=== PATIENT | female | born 1980 | race Caucasian/White ===

== ENCOUNTER 2022-07-19 18:33 | Emergency (ER) | payer BC, SELFPAY ==
[2022-07-19] VITALS (8 sets, daily range): BP systolic 150–203; BP diastolic 82–107; PULSE 79–84; RESP 17–43; TEMP 36.6; O2SAT 97–100; BMI 45.6
--- NOTE | 2022-07-19 18:46 | DI.RAD.S_ITS ---
PROCEDURE: XR CHEST 1V INDICATIONS: chest pain TECHNIQUE: One view of the chest was acquired. COMPARISON: None. FINDINGS: Surgical changes and devices: None. Lungs and pleura: Lungs are clear. No pleural effusions or pneumothorax. Mediastinum: Mediastinal contours appear normal. Heart size is enlarged. Bones and chest wall: No suspicious bony lesions. Overlying soft tissues appear unremarkable. IMPRESSION: Cardiomegaly without vascular congestion Approved by: Reji Kan M.D. on 07/19/2022 at 18:49
[2022-07-19 19:09] LABS: Add Manual Diff / Slide Review NO; Basophils Absolute Auto 100 /uL (0-100); Basophils Percent Auto 0.5 % (0-2); Eosinophils Absolute Auto 400 /uL (0-450); Eosinophils Percent Auto 3.3 % (2-4); Hematocrit 38.1 % (36-46); Hemoglobin 12.9 g/dL (12.0-16.0); Lymphocytes Absolute Auto 2800 /uL (1100-4500); Lymphocytes Percent Auto 25.3 % (25-40); Mean Corpuscular HGB Conc 33.8 % (30-36); Mean Corpuscular Hemoglobin 29.6 PG (26-34); Mean Corpuscular Volume 87.5 fL (80-100); Monocytes Absolute Auto 1000 /uL (0-900); Monocytes Percent Auto 9.4 % (3-14); Neutrophils Absolute Auto 6800 /uL (1500-7000); Neutrophils Percent Auto 61.5 % (50-75); Platelet Count 351 X10^3/uL (150-400); Red Blood Cell Count 4.35 X10^6/uL (4.0-5.2)
[2022-07-19 19:53] LABS: Alanine Aminotransferase 47 IU/L (<35); Albumin 4.1 g/dL (3.5-5.0); Albumin Globulin Ratio 1.1 (1.0-2.8); Alkaline Phosphatase 82 U/L (38-126); Aspartate Aminotransferase 36 IU/L (14-36); BUN Creatinine Ratio 10.9 (6-22); Bilirubin Total 0.8 mg/dL (0.2-1.3); Blood Urea Nitrogen 6 mg/dL (7-17); Calcium 8.8 mg/dL (8.4-10.2); Carbon Dioxide 27 mmol/L (22-32); Chloride 101 mmol/L (98-107); Creatine Kinase 63 U/L (30-135); Estimated Glomerular Filt Rate > 60 mL/min (>60); Globulin 3.6 g/dL (1.7-4.1); Glucose 171 mg/dL (70-100); HEMOLYSIS < 15 (0-50); Lipase 77 U/L (23-300); Magnesium 2.1 mg/dL (1.6-2.3); Potassium 3.8 mmol/L (3.4-5.1); Sodium 137 mmol/L (137-145); Total Protein 7.7 g/dL (6.3-8.2)
--- NOTE | 2022-07-19 19:54 | DI.CT.S_ITS ---
PROCEDURE: CT ANGIO CHEST PE PROTOCOL INDICATIONS: Dyspnea/history of DVT/right-sided chest pain TECHNIQUE: After the administration of intravenous contrast, 2 mm thick sections acquired from the pulmonary apices to the posterior costophrenic angles. 3-dimensional maximum intensity projection (MIP) coronal and sagittal reformats were then acquired through the thorax. For radiation dose reduction, the following was used: automated exposure control, adjustment of mA and/or kV according to patient size. COMPARISON: None. FINDINGS: Image quality: Excellent. Pulmonary arteries: Pulmonary arteries are normal in size, and demonstrate no intraluminal filling defects to suggest central pulmonary embolism. Lungs and pleura: Lungs are clear. No pleural effusions or pneumothorax. Central and peripheral airways are patent. Mediastinum: Heart size is normal, without pericardial effusion. No mediastinal or hilar adenopathy. Thoracic aorta is normal in caliber and enhancement. Esophagus is normal in caliber, without hiatal hernia. Bones and chest wall: No suspicious bony lesions. Ribs and thoracic spine appear intact throughout. Thyroid gland is within normal limits. Borderline enlarged left supraclavicular and axillary lymph nodes are seen measures up to 1 cm in short axis diameter in left supraclavicular region and 1.4 cm in short axis diameter in left axilla series 4, image 29. Bilateral breast implants are seen in place and are grossly intact. Abdomen: Visualized upper abdominal solid organs appear normal in the early arterial phase of enhancement. IMPRESSION: 1. No evidence of pulmonary emboli. No thoracic aortic aneurysm or gross dissection. 2. No mediastinal or hilar lymphadenopathy by size criteria. Nonspecific mildly enlarged left supraclavicular and axillary lymph nodes which could represent reactive inflammatory nodes. 3. Bilateral lungs are clear. Airway is patent. Dictated by: Cyrus Gray M.D. on 07/19/2022 at 20:41 Approved by: Cyrus Gray M.D. on 07/19/2022 at 20:45
--- NOTE | 2022-07-19 19:55 | ED_ITS ---
HPI - Chest Pain General Chief Complaint: Chest Pain Stated Complaint: Cough, Chest/Throat pains Time Seen by Provider: 07/19/22 19:44 History of Present Illness HPI narrative: Patient here with mother. Complains of persistent coughing with right side chest discomfort. Patient returned from [place] June 08 of this year. Tested positive for COVID but had short respiratory symptoms for 1 or 2 days in improved. However rebounded with cough cold congestion a couple weeks later. Still has persistent cough. No exertional chest pain. At times feel short of breath but not persistent. Patient seen here 5 days ago for same complaint. Patient has been on steroid packs by primary care/urgent care in the past 4 weeks as well. No improvement. No history of lung disease asthma COPD. Does not smoke. There is family history of heart disease. Patient does take blood pressure medication. She was anxious she states in triage. However blood pressure much improved now. Patient does have dry cough during interview. Did have history of blood clot in the leg 11 years ago secondary to surgery. Did have blood work done and did not show any genetic disposition for blood clots. Complains of reproducible right upper chest discomfort sharp pain with deep breath and movement that radiates to the right neck. Related Data Home Medications Medication Instructions Recorded Confirmed escitalopram oxalate 10 mg tablet 10 mg PO DAILY 06/28/22 06/28/22 (Lexapro) lisinopril 10 mg tablet 10 mg PO DAILY 06/28/22 06/28/22 Previous Rx's Medication Instructions Recorded benzonatate 100 mg capsule 100 mg PO BID PRN cough #20 caps 06/28/22 Allergies Allergy/AdvReac Type Severity Reaction Status Date / Time No Known Drug Allergies Allergy Unverified 07/19/22 18:46 Review of Systems Review of Systems Narrative: GENERAL: Denies chills, fatigue, malaise, fever, sweats. HEENT: Denies sinus pain, ear pain, sore throat RESPIRATORY: Denies dyspnea, positive cough CARDIOVASCULAR: Positive chest pain, palpitations GASTROINTESTINAL: Denies nausea, vomiting, abdominal pain : Denies dysuria, frequency, hematuria MUSCULOSKELETAL: denies muscle or bony pain SKIN: Denies rash, skin lesions NEUROLOGIC: Denies weakness, numbness ROS Unobtainable: All systems reviewed & are unremarkable except as noted in HPI and below Patient History Social History Smoking Status: Never smoker Smoking Status: Never smoker alcohol intake frequency: a few times a week Substance Use Type: does not use Exam Narrative Exam Narrative: GENERAL: in no distress, not toxic not dyspneic HEAD: Normocephalic. EYES: Pupils equal round No scleral icterus. ENT: Mucous membranes moist. NECK: Trachea midline. CARDIOVASCULAR: Regular rate and rhythm without murmurs, reproducible right upper chest tenderness on palpation as well as coughing/deep breath RESPIRATORY: Clear to auscultation. Breath sounds equal bilaterally. No wheezes, rales, or rhonchi. GASTROINTESTINAL: Abdomen soft, non-tender EXTREMITIES: No gross deformities. No calf tenderness. BACK: No flank tenderness. NEURO: AOx4. SKIN: Warm and dry PSYCH: Not anxious, is cooperative Initial Vital Signs Initial Vital Signs: Vital Signs Temperature 97.9 F 07/19/22 18:39 Pulse Rate 82 07/19/22 18:39 Respiratory Rate 18 07/19/22 18:39 Blood Pressure 203/98 H 07/19/22 18:39 Pulse Oximetry 100 07/19/22 18:39 Oxygen Delivery Method 07/19/22 18:39 Course Course Course Narrative: No new issues during course of stay Orders Ordered: ED Orders 07/19/22 18:46 XR chest 1V Stat EKG-12 Lead Stat 07/19/22 19:00 Complete Blood Count AUTO DIFF Stat Comprehensive Metabolic Panel Stat Lipase Stat Magnesium Stat Test Serum,Qual Stat Troponin & CK Cardiac Panel Stat 07/19/22 19:54 CT angio chest PE protocol Stat 07/19/22 21:00 Respiratory Panel (Film Array) Stat Discontinued Medications Sodium Chloride (Normal Saline 0.9%) 500 mls @ 1,000 mls/hr IV BOLUS ONE Stop: 07/19/22 20:23 Last Infusion: 07/19/22 21:45 Dose: 0 mls/hr Documented By: Admin: 07/19/22 20:54 Dose: 1,000 mls/hr Documented By: EMMA Reevaluation(s) Reevaluation #1: Reviewed results with mother and patient. At this time laboratory studies and imaging are reassuring. Symptoms likely extension COVID. No antibiotics indicated at this time. Other than cough medication, and follow up with primary care for blood pressure re-evaluation, the symptoms may take a couple of months to resolve. Return precautions reviewed with them. They desire discharge home. Viral swab is pending however may take up to an hour, they do not want wait for results, they state they will call back Time: 21:08 Vital Signs Vital signs: Vital Signs - 8 hr 07/19/22 18:39 07/19/22 19:00 07/19/22 19:02 Temperature 97.9 F 97.8 F Pulse Rate 82 84 82 Respiratory Rate 18 20 17 Blood Pressure 203/98 H Pulse Oximetry 100 98 Oxygen Delivery Method Room Air 07/19/22 19:02 07/19/22 19:30 07/19/22 19:30 Temperature Pulse Rate 81 Respiratory Rate 22 Blood Pressure 179/107 H 161/92 H Pulse Oximetry 97 Oxygen Delivery Method 07/19/22 20:00 07/19/22 20:00 07/19/22 20:30 Temperature Pulse Rate 83 79 Respiratory Rate 24 43 H Blood Pressure 155/89 H Pulse Oximetry 98 98 Oxygen Delivery Method 07/19/22 21:00 07/19/22 21:45 Temperature Pulse Rate 81 82 Respiratory Rate 33 H 21 Blood Pressure 150/82 H Pulse Oximetry 98 98 Oxygen Delivery Method Room Air MDM - Chest Pain Differential Diagnosis Differential diagnosis: Likely stable angina, unstable angina pectoris, atypical chest pain, chest pain and other (Pneumonia/bronchitis/costochondritis/PE) Lab Data Result diagrams: 07/19/22 19:00 07/19/22 19:00 Labs: Lab Results 07/19/22 07/19/22 07/19/22 Range/Units 19:00 19:00 19:00 WBC 11.0 (4.5-11.0) X10^3/uL RBC 4.35 (4.0-5.2) X10^6/uL Hgb 12.9 (12.0-16.0) g/dL Hct 38.1 (36-46) % MCV 87.5 (80-100) fL MCH 29.6 (26-34) PG MCHC 33.8 (30-36) % RDW 13.0 (11.6-14.8) % Plt Count 351 (150-400) X10^3/uL Neut % (Auto) 61.5 (50-75) % Lymph % (Auto) 25.3 (25-40) % [place] % (Auto) 9.4 (3-14) % Eos % (Auto) 3.3 (2-4) % Baso % (Auto) 0.5 (0-2) % Neut # (Auto) 6800 (9682-5842) /uL Lymph # (Auto) 2800 (9698-3186) /uL [place] # (Auto) 1000 H (0-900) /uL Eos # (Auto) 400 (0-450) /uL Baso # (Auto) 100 (0-100) /uL Sodium 137 (137-145) mmol/L Potassium 3.8 (3.4-5.1) mmol/L Chloride 101 (98-107) mmol/L Carbon Dioxide 27 (22-32) mmol/L BUN 6 L (7-17) mg/dL Creatinine 0.55 (0.52-1.04) mg/dL Estimated GFR > 60 (>60) mL/min BUN/Creatinine Ratio 10.9 (6-22) Glucose 171 H (70-100) mg/dL Calcium 8.8 (8.4-10.2) mg/dL Magnesium 2.1 (1.6-2.3) mg/dL Total Bilirubin 0.8 (0.2-1.3) mg/dL AST 36 (14-36) IU/L ALT 47 H (<35) IU/L Alkaline Phosphatase 82 (38-126) U/L Total Creatine Kinase 63 (30-135) U/L CK-MB (CK-2) TNP CK-MB (CK-2) Rel Index TNP Troponin I < 0.012 (0.01-0.034) ng/mL Total Protein 7.7 (6.3-8.2) g/dL Albumin 4.1 (3.5-5.0) g/dL Globulin 3.6 (1.7-4.1) g/dL Albumin/Globulin Ratio 1.1 (1.0-2.8) Lipase 77 (23-300) U/L Serum , Qual Negative (Negative) Chlamy pneumoniae PCR (Not Detect) Adenovirus (PCR) (Not Detect) B. pertussis DNA (PCR) (Not Detecte) B.parapertussis DNA PCR (Not Detecte) Coronavirus OC43 (PCR) (Not Detect) Coronavirus HKU1 (PCR) (Not Detect) Coronavirus 229E (PCR) (Not Detect) SARS-CoV-2 (PCR) (Not Detecte) Coronavirus NL63 (PCR) (Not Detect) Human Metapneumovir PCR (Not Detect) Influenza Type A (PCR) (Not Detect) Influenza Type B (PCR) (Not Detect) M. pneumoniae (PCR) (Not Detect) Parainfluenza 1 (PCR) (Not Detect) Parainfluenza 2 (PCR) (Not Detect) Parainfluenza 3 (PCR) (Not Detect) Parainfluenza 4 (PCR) (Not Detect) RSV (PCR) (Not Detect) Entero/Rhino (PCR) (Not Detect) 07/19/22 Range/Units 21:00 WBC (4.5-11.0) X10^3/uL RBC (4.0-5.2) X10^6/uL Hgb (12.0-16.0) g/dL Hct (36-46) % MCV (80-100) fL MCH (26-34) PG MCHC (30-36) % RDW (11.6-14.8) % Plt Count (150-400) X10^3/uL Neut % (Auto) (50-75) % Lymph % (Auto) (25-40) % [place] % (Auto) (3-14) % Eos % (Auto) (2-4) % Baso % (Auto) (0-2) % Neut # (Auto) (1603-6222) /uL Lymph # (Auto) (7301-6656) /uL [place] # (Auto) (0-900) /uL Eos # (Auto) (0-450) /uL Baso # (Auto) (0-100) /uL Sodium (137-145) mmol/L Potassium (3.4-5.1) mmol/L Chloride (98-107) mmol/L Carbon Dioxide (22-32) mmol/L BUN (7-17) mg/dL Creatinine (0.52-1.04) mg/dL Estimated GFR (>60) mL/min BUN/Creatinine Ratio (6-22) Glucose (70-100) mg/dL Calcium (8.4-10.2) mg/dL Magnesium (1.6-2.3) mg/dL Total Bilirubin (0.2-1.3) mg/dL AST (14-36) IU/L ALT (<35) IU/L Alkaline Phosphatase (38-126) U/L Total Creatine Kinase (30-135) U/L CK-MB (CK-2) CK-MB (CK-2) Rel Index Troponin I (0.01-0.034) ng/mL Total Protein (6.3-8.2) g/dL Albumin (3.5-5.0) g/dL Globulin (1.7-4.1) g/dL Albumin/Globulin Ratio (1.0-2.8) Lipase (23-300) U/L Serum , Qual (Negative) Chlamy pneumoniae PCR Not detected (Not Detect) Adenovirus (PCR) Detected H (Not Detect) B. pertussis DNA (PCR) Not detected (Not Detecte) B.parapertussis DNA PCR Not detected (Not Detecte) Coronavirus OC43 (PCR) Not detected (Not Detect) Coronavirus HKU1 (PCR) Not detected (Not Detect) Coronavirus 229E (PCR) Not detected (Not Detect) SARS-CoV-2 (PCR) Not detected (Not Detecte) Coronavirus NL63 (PCR) Not detected (Not Detect) Human Metapneumovir PCR Not detected (Not Detect) Influenza Type A (PCR) Not detected (Not Detect) Influenza Type B (PCR) Not detected (Not Detect) M. pneumoniae (PCR) Not detected (Not Detect) Parainfluenza 1 (PCR) Not detected (Not Detect) Parainfluenza 2 (PCR) Not detected (Not Detect) Parainfluenza 3 (PCR) Not detected (Not Detect) Parainfluenza 4 (PCR) Not detected (Not Detect) RSV (PCR) Not detected (Not Detect) Entero/Rhino (PCR) Not detected (Not Detect) Imaging Data Chest x-ray: Radiologist's Impression: [address] [address] XRay Report Signed Patient: Angelika Moreland MR#: [id number] : 1980 Acct:[id number] Age/Sex: 42 / F Date of Service: 07/19/22 Loc: ED Accession Number: [id number] ?? Procedure: XR chest 1V Ordering Provider: Juan F Linder MD PROCEDURE:? XR CHEST 1V ? INDICATIONS:? chest pain ? TECHNIQUE:? One view of the chest was acquired.? ? COMPARISON:? None. ? FINDINGS:? ? Surgical changes and devices:? None.? ? Lungs and pleura:? Lungs are clear.? No pleural effusions or pneumothorax.? ? Mediastinum:? Mediastinal contours appear normal.? Heart size is enlarged.? ? Bones and chest wall:? No suspicious bony lesions.? Overlying soft tissues appear unremarkable.? ? IMPRESSION:? Cardiomegaly without vascular congestion ? ? ? Approved by: Reji Kan M.D. on 07/19/2022 at 18:49? CT scan - chest: Radiologist's Impression: [address] [address] [address] Scan Report Signed Patient: Angelika Moreland MR#: [id number] : 1980 Acct:[id number] Age/Sex: 42 / F Date of Service: 07/19/22 Loc: ED Accession Number: [id number] ?? Procedure: CT angio chest PE protocol Ordering Provider: Juan F Linder MD PROCEDURE:? CT ANGIO CHEST PE PROTOCOL ? INDICATIONS:? Dyspnea/history of DVT/right-sided chest pain ? TECHNIQUE:? After the administration of intravenous contrast, 2 mm thick sections acquired from the pulmonary apices to the posterior costophrenic angles.? 3-dimensional maximum intensity projection (MIP) coronal and sagittal reformats were then acquired through the thorax.? For radiation dose reduction, the following was used:? automated exposure control, adjustment of mA and/or kV according to patient size.? ? COMPARISON:? None. ? FINDINGS:? Image quality:? Excellent.? ? Pulmonary arteries:? Pulmonary arteries are normal in size, and demonstrate no intraluminal filling defects to suggest central pulmonary embolism.? ? Lungs and pleura:? Lungs are clear.? No pleural effusions or pneumothorax.? Central and peripheral airways are patent.? ? Mediastinum:? Heart size is normal, without pericardial effusion.? No mediastinal or hilar adenopathy.? Thoracic aorta is normal in caliber and enhancement.? Esophagus is normal in caliber, without hiatal hernia.? ? Bones and chest wall:? No suspicious bony lesions.? Ribs and thoracic spine appear intact throughout.? Thyroid gland is within normal limits.? Borderline enlarged left supraclavicular and axillary lymph nodes are seen measures up to 1 cm in short axis diameter in left supraclavicular region and 1.4 cm in short axis diameter in left axilla series 4, image 29. Bilateral breast implants are seen in place and are grossly intact.? ? Abdomen:? Visualized upper abdominal solid organs appear normal in the early arterial phase of enhancement.? ? IMPRESSION:? 1. No evidence of pulmonary emboli.? No thoracic aortic aneurysm or gross dissection. ? 2. No mediastinal or hilar lymphadenopathy by size criteria.? Nonspecific mildly enlarged left supraclavicular and axillary lymph nodes which could represent reactive inflammatory nodes. ? 3. Bilateral lungs are clear.? Airway is patent.? ? ? Dictated by: Cyrus Gray M.D. on 07/19/2022 at 20:41 ? ? Approved by: Cyrus Gray M.D. on 07/19/2022 at 20:45 ? ECG Data Interpretation: Sinus rhythm rate [address] elevation or depression MDM Narrative Medical decision making narrative: Appropriate for discharge home. Symptoms likely related to extended sequelae from COVID infection in June. This may take a couple of months to resolve. Otherwise exam and laboratory studies imaging are reassuring. Return precautions reviewed with patient and to have blood pressure recheck with primary care. She does have a family doctor. Not toxic or dyspneic at discharg e. Discharge Plan Departure Patient Disposition: Home Clinical Impression: Bronchitis, Costalchondritis, Adenovirus infection Instructions: DI for Acute Bronchitis, DI for Costochondritis Activity Restrictions/Additional Instructions: Return if worsening questions or concerns or trouble breathing. May continue [id number] cough medication and continue your inhaler. Return if worse if any questions or concerns, see family doctor in a week for re-evaluation. You will need to have your blood pressure rechecked as well. It has improved during course of stay. Prescriptions: No Action escitalopram oxalate [Lexapro] 10 mg tablet 10 mg PO DAILY lisinopril 10 mg tablet 10 mg PO DAILY benzonatate 100 mg capsule 100 mg PO BID PRN (Reason: cough) Qty: 20 0RF Referrals: Rigo Franks ARNP [Primary Care Provider] - Visit Report Forms: Patient Portal/API
[2022-07-19 20:03] LABS: Troponin I < 0.012 ng/mL (0.01-0.034)
[2022-07-19 20:47] LABS: Pregnancy Test Serum,Qual Negative (Negative)
[2022-07-19] MEDS: SODIUM CHLORIDE 0.9% 500 ML 1000 ML IV (20:54)
[2022-07-19 22:55] LABS: Adenovirus Detected (Not Detect); B. parapertussis Not Detected (Not Detecte); Bordetella pertussis Not Detected (Not Detecte); Chlamydophila pneumoniae Not Detected (Not Detect); Coronavirus 229E Not Detected (Not Detect); Coronavirus HKU1 Not Detected (Not Detect); Coronavirus NL 63 Not Detected (Not Detect); Coronavirus OC43 Not Detected (Not Detect); Human Metapneumovirus Not Detected (Not Detect); Human Rhinovirus/Enterovirus Not Detected (Not Detect); Influenza A Not Detected (Not Detect); Influenza B Not Detected (Not Detect); Mycoplasma pneumoniae Not Detected (Not Detect); Parainfluenza Virus 1 Not Detected (Not Detect); Parainfluenza Virus 2 Not Detected (Not Detect); Parainfluenza Virus 3 Not Detected (Not Detect); Parainfluenza Virus 4 Not Detected (Not Detect); Respiratory Syncytial Virus Not Detected (Not Detect); SARS- CoV-2 Not Detected (Not Detecte)
--- NOTE | 2022-07-19 23:33 | PC.NURSE ---
Pt notified Respiratory panel results
== END 2022-07-19 21:47 | disposition home or self-care (01) ==
PROVIDERS: Emergency Provider Emergency Medicine; PCP Registered Nurse Diabetes Educator
DX: J20.9 Acute bronchitis, unspecified (principal); M94.0 Chondrocostal junction syndrome [Tietze]; B34.0 Adenovirus infection, unspecified; R07.9 Chest pain, unspecified; Z20.822 Contact with and (suspected) exposure to COVID-19; Z86.16 Personal history of COVID-19
CPT/HCPCS: 36415; 71045; 71275; 80053; 82550; 83690; 83735; 84484; 84703; 85025; 87633; 93005; 93010; 99284; Q9967

== ENCOUNTER → 2022-10-03 16:51 | Outpatient (CLI) | payer OTHER, SELFPAY ==
--- NOTE | 2022-10-03 16:53 | DI.RAD.S_ITS ---
PROCEDURE: XR WRIST RT MIN 3V INDICATIONS: right wrist pain TECHNIQUE: 3 views of the wrist were acquired. COMPARISON: None. FINDINGS: Bones: No fractures or dislocations. No suspicious bony lesions. Soft tissues: No suspicious soft tissue calcifications. IMPRESSION: No visualized fracture. Dictated by: Joyce Lan M.D. on 10/03/2022 at 17:26 Approved by: Joyce Lan M.D. on 10/03/2022 at 17:26
== END ==
PROVIDERS: PCP Registered Nurse Diabetes Educator; Referring Provider Physician Assistant Medical; Visit Provider Physician Assistant Medical
DX: M25.531 Pain in right wrist (principal)
CPT/HCPCS: 73110

== ENCOUNTER → 2023-04-07 11:10 | Outpatient (CLI) | payer OTHER, SELFPAY ==
[2023-04-07 12:18] LABS: Hematocrit 38.5 % (36-46); Hemoglobin 12.8 g/dL (12.0-16.0); Mean Corpuscular HGB Conc 33.1 % (30-36); Mean Corpuscular Hemoglobin 28.8 PG (26-34); Platelet Count 344 X10^3/uL (150-400); Red Blood Cell Count 4.43 X10^6/uL (4.0-5.2); Red Cell Distribution Width 13.4 % (11.6-14.8); White Blood Cell Count 9.5 X10^3/uL (4.5-11.0)
[2023-04-07 12:36] LABS: Alanine Aminotransferase 37 IU/L (<35); Albumin 4.1 g/dL (3.5-5.0); Albumin Globulin Ratio 1.1 (1.0-2.8); Alkaline Phosphatase 94 U/L (38-126); Aspartate Aminotransferase 35 IU/L (14-36); BUN Creatinine Ratio 12.3 (6-22); Bilirubin Total 0.9 mg/dL (0.2-1.3); Blood Urea Nitrogen 7 mg/dL (7-17); Calcium 8.9 mg/dL (8.4-10.2); Carbon Dioxide 31 mmol/L (22-32); Chloride 100 mmol/L (98-107); Cholesterol 195 mg/dL (140-199); Estimated Glomerular Filt Rate > 60 mL/min (>60); Globulin 3.7 g/dL (1.7-4.1); Glucose 109 mg/dL (70-100); HDL Cholesterol 37 mg/dL (40-60); HEMOLYSIS < 15 (0-50); LDL Cholesterol Calculated 131 mg/dL (<100); Sodium 137 mmol/L (137-145); Total Protein 7.8 g/dL (6.3-8.2); Triglycerides 137 mg/dL (35-150)
[2023-04-07 13:05] LABS: TSH w/ Reflex to FT4 2.15 uIU/mL (0.47-4.68)
[2023-04-07 13:14] LABS: Creatinine Urine Random 143.3 mg/dL
[2023-04-07 13:17] LABS: Microalbumi Creatinin Ratio Ur 8.3 ug/mg CR (<30); Microalbumin Urine Random 1.2 mg/dL (0-1.6)
[2023-04-09 15:28] LABS: Interpretation Negative (Negative)
== END ==
PROVIDERS: PCP Registered Nurse Diabetes Educator; Referring Provider Registered Nurse Diabetes Educator; Visit Provider Registered Nurse Diabetes Educator
DX: E11.9 Type 2 diabetes mellitus without complications (principal); E78.5 Hyperlipidemia, unspecified; R10.13 Epigastric pain
CPT/HCPCS: 36415; 80053; 80061; 82043; 82570; 83013; 83036; 84443; 85027

== ENCOUNTER 2023-04-11 21:01 | Observation (INO) | payer OTHER, SELFPAY ==
[2023-04-11] VITALS (8 sets, daily range): BP systolic 172–230; BP diastolic 86–108; PULSE 73–84; RESP 16; TEMP 36.7; O2SAT 96–99; BMI 46.6
--- NOTE | 2023-04-11 22:21 | PC.NURSE ---
patient states that in the past she had a blood clot in her right leg. Today she noticed that her left (arm and leg) side was beginning to tingle and go numb and crampy. She stated that it felt similar to when she had the blood clot. When she noticed the numbness, she began to get anxious and has a history of anxiety. The numbness has resolved. She does not have any sensory deficits currently. She dos not exhibit signs of ataxia. 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 She does not have any facial drooping or issues with her speech. She is not in distress and stated that her crampy feelings dissipated after drinking water. She states she feels better.
--- NOTE | 2023-04-11 23:39 | DI.CT.S_ITS ---
PROCEDURE: CT ANGIO CHEST PE PROTOCOL INDICATIONS: Chest pain TECHNIQUE: After the administration of intravenous contrast, 2 mm thick sections acquired from the pulmonary apices to the posterior costophrenic angles. 3-dimensional maximum intensity projection (MIP) coronal and sagittal reformats were then acquired through the thorax. For radiation dose reduction, the following was used: automated exposure control, adjustment of mA and/or kV according to patient size. COMPARISON: [facility], CT, CT ANGIO CHEST PE PROTOCOL, 07/19/2022, 20:02. FINDINGS: Image quality: Excellent. Pulmonary arteries: Pulmonary arteries are normal in size, and demonstrate no intraluminal filling defects to suggest central pulmonary embolism. Lungs and pleura: Lungs are clear. No pleural effusions or pneumothorax. Central and peripheral airways are patent. Mediastinum: Heart size is normal, without pericardial effusion. No mediastinal or hilar adenopathy. Thoracic aorta is normal in caliber and enhancement. Esophagus is normal in caliber, without hiatal hernia. Bones and chest wall: No suspicious bony lesions. Ribs and thoracic spine appear intact throughout. Thyroid gland appears normal. No axillary or supraclavicular adenopathy. Bilateral breast implants without evidence of implant rupture. Abdomen: Visualized upper abdominal solid organs appear normal in the early arterial phase of enhancement. IMPRESSION: No pulmonary embolus, source of chest pain is not seen. Dictated by: Fercho De Los Santos M.D. on 04/12/2023 at 0:42 Approved by: Fercho De Los Santos M.D. on 04/12/2023 at 0:44
--- NOTE | 2023-04-11 23:40 | ED_ITS ---
HPI - Extremity Problem General Chief complaint: Extremity Problem,Nontraumatic Stated complaint: diabetes issues Time Seen by Provider: 04/11/23 22:38 Source: patient Mode of arrival: Ambulatory History of Present Illness HPI Narrative: Patient here with her mother. Complains of atypical chest pain at the neck and then left arm left leg pain and cramping. Onset 7:30 p.m. tonight. It has resolved now. No syncope. No nausea no shortness of breath. Patient has recently had palpitations. No exertional chest pain or dyspnea. Patient has significant family history, mom had a heart attack, and and on-call as well. Patient just evaluated by primary care recently and blood pressure medication has been increased, she is now on cholesterol medication and is going to be starting on diabetes medication. Related Data Previous Rx's Medication Instructions Recorded escitalopram oxalate 10 mg tablet 10 mg PO DAILY #90 tabs 12/27/22 (Lexapro) blood sugar diagnostic (Blood #100 ea 12/28/22 Glucose Test strips) blood-glucose meter #1 ea 12/28/22 lancets #100 ea 12/28/22 lisinopril 40 mg tablet 40 mg PO DAILY #90 tabs 04/10/23 rosuvastatin 10 mg tablet 10 mg PO DAILY #90 tabs 04/10/23 semaglutide 0.25 mg or 0.5 mg (2 0.25 mg (0.2 mL) SUBCUT QWEEK #1.5 04/10/23 mg/1.5 mL) subcutaneous pen mL injector (Ozempic) semaglutide 1 mg/dose (2 mg/1.5 1 mg (0.75 mL) SUBCUT QWEEK #3 mL 04/10/23 mL) subcutaneous pen injector Allergies Allergy/AdvReac Type Severity Reaction Status Date / Time No Known Drug Allergies Allergy Verified 04/11/23 21:03 Review of Systems Review of Systems Narrative: GENERAL: negative chills, fatigue, malaise, fever, sweats. HEENT: negative sinus pain, ear pain, sore throat RESPIRATORY: negative dyspnea, cough CARDIOVASCULAR: Positive chest pain, palpitations GASTROINTESTINAL: negative nausea, vomiting, abdominal pain : negative dysuria, frequency, hematuria MUSCULOSKELETAL: negative muscle or bony pain SKIN: negative rash, skin lesions NEUROLOGIC: negative weakness, numbness ROS Unobtainable: All systems reviewed & are unremarkable except as noted in HPI and below Patient History Medical History Anxiety Deep vein thrombosis (~2010) Diabetes type 2, controlled Dyslipidemia Essential hypertension Hemorrhoid Surgical History Anesthesia History of ankle surgery (~2010) History of bilateral breast implants (~1999) History of section (~2017) History of hernia surgery (~1984) History of tonsillectomy (~1999) Family History (Updated 04/12/23 @ 01:30 by AMANDO Miller) Mother Heart attack Aunt Heart attack Social History household members: spouse and children Smoking Status: Never smoker alcohol intake: current Smoking Status: Never smoker alcohol intake frequency: holidays/special occasions only Substance Use Type: does not use Exam Narrative Exam Narrative: GENERAL: in no distress, not toxic not dyspneic HEAD: Normocephalic. EYES: Pupils equal round ENT: Mucous membranes moist. NECK: Trachea midline. CARDIOVASCULAR: Regular rate and rhythm without murmurs RESPIRATORY: Clear to auscultation. Breath sounds equal bilaterally. No wheezes, rales, or rhonchi. GASTROINTESTINAL: Abdomen soft, non-tender EXTREMITIES: No gross deformities. BACK: No flank tenderness. NEURO: AOx4. SKIN: Warm and dry PSYCH: Not anxious, is cooperative Initial Vital Signs Initial Vital Signs: Vital Signs Temperature 98.0 F 04/11/23 21:03 Pulse Rate 76 04/11/23 21:03 Respiratory Rate 16 04/11/23 21:03 Blood Pressure 230/108 H 04/11/23 21:03 Pulse Oximetry 99 04/11/23 21:03 Oxygen Delivery Method Room Air 04/11/23 21:03 Course Orders Ordered: ED Orders 04/11/23 21:10 EKG-12 Lead Stat 04/11/23 23:38 Complete Blood Count AUTO DIFF Stat Comprehensive Metabolic Panel Stat Troponin & CK Cardiac Panel Stat 04/11/23 23:39 CT angio chest PE protocol Stat Acetaminophen (Acetaminophen 325 Mg Tablet) 650 mg PO Q6H PRN PRN Reason: Fever/Mild Pain (1-3) Al Hydrox/Mg Hydrox/Simethicone (Mag Hydrox/Alum/Simeth 30 Ml Udc) 30 ml PO Q6HR PRN PRN Reason: Dyspepsia Aspirin (Aspirin Ec 325 Mg Tablet) 325 mg PO DAILY [facility] Atorvastatin Calcium (Atorvastatin 20 Mg Tablet) 20 mg PO DAILY [facility] Calcium Carbonate (Calcium Carbonate 500 Mg Tab) 1,000 mg PO Q4HR PRN PRN Reason: Dyspepsia Dextrose (Dextrose 50 % In Water 25 Gm/50 Ml Syringe) 25 gm IV PRN PRN PRN Reason: Hypoglycemia Enoxaparin Sodium (Enoxaparin 40 Mg/0.4 Ml Syringe) 40 mg SUBCUT DAILY [facility] Escitalopram Oxalate (Escitalopram 10 Mg Tablet) 10 mg PO DAILY [facility] Insulin Human Lispro (Insulin Lispro 100 Unit/Ml 3ml Vial) 0 unit SUBCUT ACHS ASHLEY; Protocol Lisinopril (Lisinopril 20 Mg Tablet) 40 mg PO DAILY [facility] Morphine Sulfate (Morphine 2 Mg/Ml Inj) 2 mg IV Q5MIN PRN PRN Reason: Chest Pain Naloxone HCl (Naloxone 0.4 Mg/Ml Vial) 0.2 mg IV Q2MIN PRN PRN Reason: Opiate Reversal Nitroglycerin (Nitroglycerin 0.4 Mg Sl Tab) 0.4 mg SL [id number] PRN PRN Reason: Chest Pain Ondansetron HCl (Ondansetron 4 Mg/2 Ml Inj) 4 mg IV Q8HR PRN PRN Reason: Nausea And Vomiting Discontinued Medications Aspirin (Aspirin 81 Mg Chew Tab) 324 mg PO NOW ONE Stop: 04/11/23 23:39 Last Admin: 04/12/23 00:25 Dose: 324 mg Documented By: LEONORA Sodium Chloride (Normal Saline 0.9%) 500 mls @ 1,000 mls/hr IV BOLUS ONE Stop: 04/12/23 00:07 Last Admin: 04/12/23 00:25 Dose: 1,000 mls/hr Documented By: LEONORA Lisinopril (Lisinopril 20 Mg Tablet) 20 mg PO NOW ONE Stop: 04/11/23 23:39 Last Admin: 04/12/23 00:20 Dose: 20 mg Documented By: LEONORA Vital Signs Vital signs: Vital Signs - 8 hr 04/11/23 21:03 04/11/23 21:23 04/11/23 21:23 Temperature 98.0 F Pulse Rate 76 73 Respiratory Rate 16 Blood Pressure 230/108 H 182/89 H Pulse Oximetry 99 98 Oxygen Delivery Method Room Air Room Air 04/11/23 21:30 04/11/23 22:00 04/11/23 22:01 Temperature Pulse Rate 75 76 Respiratory Rate Blood Pressure 172/86 H Pulse Oximetry 98 97 Oxygen Delivery Method 04/11/23 22:01 04/12/23 00:20 04/11/23 22:30 Temperature Pulse Rate 80 81 75 Respiratory Rate Blood Pressure 164/77 H Pulse Oximetry 97 97 Oxygen Delivery Method 04/11/23 23:00 04/11/23 23:30 04/12/23 00:00 Temperature Pulse Rate 84 79 75 Respiratory Rate Blood Pressure Pulse Oximetry 97 96 96 Oxygen Delivery Method 04/12/23 00:22 04/12/23 00:22 04/12/23 00:30 Temperature Pulse Rate 82 84 Respiratory Rate Blood Pressure 164/77 H Pulse Oximetry 96 97 Oxygen Delivery Method 04/12/23 01:00 Temperature Pulse Rate 80 Respiratory Rate Blood Pressure Pulse Oximetry 97 Oxygen Delivery Method MDM - Extremity (Nontraumatic) Lab Data 04/12/23 00:01 04/12/23 00:01 Labs: Lab Results 04/12/23 04/12/23 04/12/23 Range/Units 00:01 00:01 00:01 WBC 11.5 H (4.5-11.0) X10^3/uL RBC 4.27 (4.0-5.2) X10^6/uL Hgb 12.1 (12.0-16.0) g/dL Hct 36.7 (36-46) % MCV 85.8 (80-100) fL MCH 28.3 (26-34) PG MCHC 33.0 (30-36) % RDW 13.0 (11.6-14.8) % Plt Count 310 (150-400) X10^3/uL Neut % (Auto) 65.2 (50-75) % Lymph % (Auto) 23.8 L (25-40) % [place] % (Auto) 7.8 (3-14) % Eos % (Auto) 2.4 (2-4) % Baso % (Auto) 0.8 (0-2) % Neut # (Auto) 7500 H (3910-7940) /uL Lymph # (Auto) 2700 (0080-5619) /uL [place] # (Auto) 900 (0-900) /uL Eos # (Auto) 300 (0-450) /uL Baso # (Auto) 100 (0-100) /uL Sodium 136 L (137-145) mmol/L Potassium 4.3 (3.4-5.1) mmol/L Chloride 100 (98-107) mmol/L Carbon Dioxide 32 (22-32) mmol/L BUN 11 (7-17) mg/dL Creatinine 0.59 (0.52-1.04) mg/dL Estimated GFR > 60 (>60) mL/min BUN/Creatinine Ratio 18.6 (6-22) Glucose 139 H (70-100) mg/dL Calcium 8.9 (8.4-10.2) mg/dL Magnesium (1.6-2.3) mg/dL Total Bilirubin 0.6 (0.2-1.3) mg/dL AST 40 H (14-36) IU/L ALT 39 H (<35) IU/L Alkaline Phosphatase 89 (38-126) U/L Total Creatine Kinase 51 (30-135) U/L Troponin I < 0.012 (0.01-0.034) ng/mL NT-Pro-B Natriuret Pep (<125) pg/mL Total Protein 7.7 (6.3-8.2) g/dL Albumin 3.9 (3.5-5.0) g/dL Globulin 3.8 (1.7-4.1) g/dL Albumin/Globulin Ratio 1.0 (1.0-2.8) Triglycerides 142 (35-150) mg/dL Cholesterol 193 (140-199) mg/dL LDL Cholesterol, Calc 133 H (<100) mg/dL HDL Cholesterol 32 L (40-60) mg/dL 04/12/23 04/12/23 Range/Units 00:01 00:01 WBC (4.5-11.0) X10^3/uL RBC (4.0-5.2) X10^6/uL Hgb (12.0-16.0) g/dL Hct (36-46) % MCV (80-100) fL MCH (26-34) PG MCHC (30-36) % RDW (11.6-14.8) % Plt Count (150-400) X10^3/uL Neut % (Auto) (50-75) % Lymph % (Auto) (25-40) % [place] % (Auto) (3-14) % Eos % (Auto) (2-4) % Baso % (Auto) (0-2) % Neut # (Auto) (7979-5051) /uL Lymph # (Auto) (4026-3130) /uL [place] # (Auto) (0-900) /uL Eos # (Auto) (0-450) /uL Baso # (Auto) (0-100) /uL Sodium (137-145) mmol/L Potassium (3.4-5.1) mmol/L Chloride (98-107) mmol/L Carbon Dioxide (22-32) mmol/L BUN (7-17) mg/dL Creatinine (0.52-1.04) mg/dL Estimated GFR (>60) mL/min BUN/Creatinine Ratio (6-22) Glucose (70-100) mg/dL Calcium (8.4-10.2) mg/dL Magnesium 2.1 (1.6-2.3) mg/dL Total Bilirubin (0.2-1.3) mg/dL AST (14-36) IU/L ALT (<35) IU/L Alkaline Phosphatase (38-126) U/L Total Creatine Kinase (30-135) U/L Troponin I (0.01-0.034) ng/mL NT-Pro-B Natriuret Pep 20 (<125) pg/mL Total Protein (6.3-8.2) g/dL Albumin (3.5-5.0) g/dL Globulin (1.7-4.1) g/dL Albumin/Globulin Ratio (1.0-2.8) Triglycerides (35-150) mg/dL Cholesterol (140-199) mg/dL LDL Cholesterol, Calc (<100) mg/dL HDL Cholesterol (40-60) mg/dL MDM Narrative Medical decision making narrative: Patient here with her mother. Complains of atypical chest pain at the neck and then left arm left leg pain and cramping. Onset 7:30 p.m. tonight. It has resolved now. No syncope. No nausea no shortness of breath. Patient has recently had palpitations. No exertional chest pain or dyspnea. Patient has significant family history, mom had a heart attack, and and on-call as well. Patient just evaluated by primary care recently and blood pressure medication has been increased, she is now on cholesterol medication and is going to be starting on diabetes medication. After history and exam CBC CMP troponin EKG CT chest [facility] CC: Atypical chest pain Complicating co-morbidities: Hypertension hypercholesteremia diabetes Data collected from: Patient and mother Medical records reviewed: No recent visits for this complaint Differential considered: Includes but not limited to STEMI non-STEMI atypical chest pain stable angina unstable angina aortic dissection pulmonary embolism Exam documented above, pertinent findings include: Nontender chest Lab Test results independently reviewed as above. Pertinent findings: WBC 11.5 hemoglobin 12.1 AST 40 ALT 39 troponin less than 0.012 Independently reviewed EKG sinus rhythm rate [address] elevation or depression Imaging studies independently reviewed: CT chest no acute finding Consultations: 1:00 a.m., spoke with Denisse, nurse practitioner hospitalist, she will see patient for admission Treatments: Aspirin normal saline Re-evaluations: 1:09 a.m.. Reviewed results with patient. She agrees for chest pain rule out stress test admission here tonight. At this time results are reassuring Discussion: Appropriate for admission. Patient will need stress test echocardiogram. Chest pain-free at this time. Blood pressure 164/77. Patient does have significant risk factors including parents family hypercholesteremia diabetes hypertension. She agrees for admission for chest pain. Diagnosis: Atypical chest pain Discharge Plan Departure Patient Disposition: Admitted as Observation Clinical Impression: Atypical chest pain Admit Date/Time: 04/12/23 01:08 Admit Provider: Denisse Rodriguez
[2023-04-12] VITALS (10 sets, daily range): BP systolic 146–168; BP diastolic 76–92; PULSE 65–88; RESP 16–18; TEMP 36.2–36.3; O2SAT 96–98; BMI 46.6
[2023-04-12 00:08] LABS: Add Manual Diff / Slide Review NO; Basophils Absolute Auto 100 /uL (0-100); Basophils Percent Auto 0.8 % (0-2); Eosinophils Absolute Auto 300 /uL (0-450); Eosinophils Percent Auto 2.4 % (2-4); Hematocrit 36.7 % (36-46); Hemoglobin 12.1 g/dL (12.0-16.0); Lymphocytes Absolute Auto 2700 /uL (1100-4500); Lymphocytes Percent Auto 23.8 % (25-40); Mean Corpuscular Hemoglobin 28.3 PG (26-34); Mean Corpuscular Volume 85.8 fL (80-100); Monocytes Absolute Auto 900 /uL (0-900); Monocytes Percent Auto 7.8 % (3-14); Neutrophils Absolute Auto 7500 /uL (1500-7000); Neutrophils Percent Auto 65.2 % (50-75); Platelet Count 310 X10^3/uL (150-400); Red Blood Cell Count 4.27 X10^6/uL (4.0-5.2); White Blood Cell Count 11.5 X10^3/uL (4.5-11.0)
[2023-04-12 00:19] LABS: Alanine Aminotransferase 39 IU/L (<35); Albumin 3.9 g/dL (3.5-5.0); Alkaline Phosphatase 89 U/L (38-126); Aspartate Aminotransferase 40 IU/L (14-36); BUN Creatinine Ratio 18.6 (6-22); Bilirubin Total 0.6 mg/dL (0.2-1.3); Blood Urea Nitrogen 11 mg/dL (7-17); Calcium 8.9 mg/dL (8.4-10.2); Carbon Dioxide 32 mmol/L (22-32); Chloride 100 mmol/L (98-107); Creatine Kinase 51 U/L (30-135); Estimated Glomerular Filt Rate > 60 mL/min (>60); Globulin 3.8 g/dL (1.7-4.1); Glucose 139 mg/dL (70-100); HEMOLYSIS < 15 (0-50); Potassium 4.3 mmol/L (3.4-5.1); Sodium 136 mmol/L (137-145); Total Protein 7.7 g/dL (6.3-8.2)
[2023-04-12] MEDS: lisinopriL 20 MG TABLET PO (00:20)
[2023-04-12] MEDS: ASPIRIN 81 MG CHEW TAB 324 MG PO (00:25)
[2023-04-12] MEDS: SODIUM CHLORIDE 0.9% 500 ML 1000 ML IV (00:25)
--- NOTE | 2023-04-12 00:28 | PC.NURSE ---
patient dropped her urine cup in the toilet and then cleaned it out and peed in it again. She stated that she did the same thing yesterday and then gave it to the med staff
[2023-04-12 00:30] LABS: Troponin I < 0.012 ng/mL (0.01-0.034)
--- NOTE | 2023-04-12 01:13 | DI.ECHO.S_ITS ---
[facility]---------+ [facility] +---------+ : : [address] : [place] : : : : [id number] : : : : Phone: [phone]+ Echocardiogram Report + + :Name: ZABRINA ROMAN Study Date: 04/12/2023 Height: 69 in : :[facility] ReadingLocation: Weight: 316 lb : : Gender: Female BSA: 2.5 m2 : :: 1980 Age: 42 yrs BP: 155/80 mmHg: :Reason For Study: CHEST PAIN : :Ordering Physician: NAY, : :MYKE Performed By: Linda Alfaro : :Referring: MYKE TEE : + + Interpretation Summary 1) Mildly increased left ventricular thickness (concentric) with normal size, normal wall motion, and normal systolic function (EF 60-65%). 2) The right ventricle is not well visualized. The right ventricle grossly appears normal in size with probable normal systolic function. 3) No significant valvular abnormalities. 4) No prior Echo available for comparison. Procedure: A two-dimensional transthoracic echocardiogram with color flow and Doppler was performed. The study quality was technically difficult. A contrast injection of Definity was performed to improve assessment of LV function. There is no prior echocardiogram noted for this patient. The patient was in sinus rhythm with heart rates between 62-67 bpm during the exam. Left Ventricle: The left ventricle is normal in size. There is mild concentric left ventricular hypertrophy. The ejection fraction is estimated to be 60-65%. Left ventricular systolic function appears normal without focal wall motion abnormalities. Diastolic function could not be accurately assessed due to unobtainable data. Right Ventricle: The right ventricle is not well visualized. The right ventricle grossly appears normal in size with probable normal systolic function. Atria: The left atrial size is normal. Right atrium not well visualized. There is no Doppler evidence for an interatrial shunt. Mitral Valve: The mitral valve is normal in structure and function. There is trace mitral regurgitation. Aortic Valve: The aortic valve is not well visualized. The aortic valve is mildly calcified. There is no aortic valve stenosis. No aortic regurgitation is present. Tricuspid Valve: The tricuspid valve is normal in structure and function. There is trace tricuspid regurgitation. Pulmonary artery pressures cannot be estimated because of the lack of a measurable TR jet velocity. Pulmonic Valve: The pulmonic valve leaflets are thin and pliable; valve motion is normal. There is no pulmonic valvular regurgitation. Great Vessels: The aortic root is normal size. The dimensions of the ascending aorta are normal. The inferior vena cava was not well visualized. Pericardium/ Pleura There is no pericardial effusion. There is no pleural effusion. MMode/2D Measurements & Calculations LVIDd: 5.9 cm LVOT diam: 2.2 cm LVIDs: 3.6 cm Ao root diam: 2.9 cm FS: 38.8 % asc Aorta Diam: 3.3 cm EPSS: 1.3 cm Ao Arch Diam (Prox Trans): 3.2 cm IVSd: 1.2 cm LVPWd: 1.1 cm LV charles. diameter/BSA (cm/m^2): 2.4 LV sys. diameter/BSA (cm/m^2): 1.4 LA A2 area: 19.2 cm2 LA A4 area: 18.6 cm2 LA length (vol): 5.9 cm LA vol: 51.1 ml LA vol index: 20.4 ml/m2 Doppler Measurements & Calculations Ao V2 max: 148.0 cm/sec LVOT Max Geoff: 76.8 cm/sec Ao V2 mean: 111.8 cm/sec LV V1 max P.4 mmHg Ao max P.8 mmHg LV V1 VTI: 17.4 cm Ao mean P.5 mmHg MISAEL(I,D): 2.2 cm2 Ao V2 VTI: 31.5 cm MISAEL(V,D): 2.0 cm2 sev ratio: 0.55 MISAEL indexed to BSA (cm^2/m^2): 0.86 MV E max geoff: 63.1 cm/sec PA V2 max: 88.2 cm/sec MV A max geoff: 45.0 cm/sec PA V2 mean: 62.7 cm/sec MV E/A: 1.4 PA mean P.8 mmHg Med Peak E' Geoff: 7.2 cm/sec PA pr(Accel): 13.9 mmHg E/E' med: 8.8 Lat Peak E' Geoff: 9.6 cm/sec E/E' lat: 6.6 E/e' average: 7.7 MV dec time: 0.23 sec SV(LVOT): 68.3 ml Reading Physician:09:14 AM
--- NOTE | 2023-04-12 01:13 | DI.NM.S_ITS ---
PROCEDURE: NM EXERCISE TREADMILL NON NUC COMPARISON: None. INDICATIONS: Chest pain FINDINGS: The patient exercised for 6 minutes and 1 second reaching 98% of maximum predicted heart rate. 7.0METS, EDDIE +26%. Hypertension at rest (BP 146/92mmHg) and hypertensive response to exercise (max BP 216/100mmHg). No angina, no diagnostic ST changes, and no ectopy during exercise or recovery. IMPRESSION: Low risk, normal treadmill ECG only stress test with mildly reduced exercise tolerance (EDDIE +26%). Hypertension at rest (BP 146/92mmHg) and hypertensive response to exercise (max BP 216/100mmHg). Dictated by: Alise Bright MD on 04/12/2023 at 13:05 Approved by: Alise Bright MD on 04/12/2023 at 13:07
--- NOTE | 2023-04-12 01:21 | P.HP_ITS ---
History of Present Illness History of Present Illness Date Patient Seen: 04/12/23 Time Patient Seen: 01:22 Chief complaint: Atypical Chest pain Narrative: Angelika Moreland is a 42-year-old female with a history of depression with anxiety, HTN, HLD, NIDDM, and morbid obesity who presented to the ED after she developed approximately 7:30 p.m. yesterday she began to experience numbness and tingling to the left side of her face down her left side of her neck into the left arm and cramping into her left arch left thigh with numbness and tingling up and down the leg. This episode lasted approximately 3 hours without associated shortness of breath, dizziness, lightheadedness, changes in vision, difficulty with ambulation, balance, coordination, difficulty swallowing. Symptoms had resolved by the time the patient presented to the ED, has continued to be asymptomatic. Patient also presented with hypertensive urgency 230/108, 182/89, 172/86. Patient notes that her mother and aunt have both had heart attacks and has significant family history of at least 3 other relatives who have from heart attacks. On admit patient denies chest pain, shortness in breath, headache, changes in vision, difficulty swallowing, speech impairment, weakness, numbness, tingling, difficulty with ambulation, recent falls, head injury, LOC, fever, body aches, chills, cough, recent exposure to illness, abdominal pain, nausea, vomiting, urinary incontinence/retention, dysuria, frequency, urgency, hematuria, bowel changes, constipation, incontinence, melena, rashes, recent changes to medication, illness, injury, or trauma. At the time of admit vital signs have improved temp 98?, 164/77, 80, 16, 97% on room air. Labs were predominantly unremarkable with the exception of WBC 11.5, neutrophils 7500, glucose 139, AST 40, ALT 39. Initial troponin negative, CTA negative for PE, EKG NSR at a rate of [address] or T-wave changes. Heart score: 3. Patient admitted for overnight observation atypical chest pain risk stratification. [facility] Medical History Anxiety Deep vein thrombosis (~2010) Diabetes type 2, controlled Dyslipidemia Essential hypertension Hemorrhoid Surgical History Anesthesia History of ankle surgery (~2010) History of bilateral breast implants (~1999) History of section (~2017) History of hernia surgery (~1984) History of tonsillectomy (~1999) Family History (Updated 04/12/23 @ 01:30 by GABRIELLA Miller-DEANN) Mother Heart attack Aunt Heart attack Social History Smoking Status: Never smoker Meds Home Medications and Allergies Home Medications Medication Instructions Recorded Confirmed Type escitalopram oxalate 10 mg tablet 10 mg PO DAILY #90 tabs 12/27/22 04/10/23 Rx (Lexapro) blood sugar diagnostic (Blood #100 ea 12/28/22 04/10/23 Rx Glucose Test strips) blood-glucose meter #1 ea 12/28/22 04/10/23 Rx lancets #100 ea 12/28/22 04/10/23 Rx lisinopril 40 mg tablet 40 mg PO DAILY #90 tabs 04/10/23 04/10/23 Rx rosuvastatin 10 mg tablet 10 mg PO DAILY #90 tabs 04/10/23 04/10/23 Rx semaglutide 0.25 mg or 0.5 mg (2 0.25 mg (0.2 mL) SUBCUT QWEEK #1.5 04/10/23 04/10/23 Rx mg/1.5 mL) subcutaneous pen mL injector (Ozempic) semaglutide 1 mg/dose (2 mg/1.5 1 mg (0.75 mL) SUBCUT QWEEK #3 mL 04/10/23 04/10/23 Rx mL) subcutaneous pen injector Allergies Allergy/AdvReac Type Severity Reaction Status Date / Time No Known Drug Allergies Allergy Verified 04/11/23 21:03 Review of Systems Review of Systems Narrative: All 12 point systems reviewed with the patient and are negative except otherwise documented. Exam Vital Signs (past 8 hours): - 04/11/23 21:03 04/11/23 21:23 04/11/23 21:23 Temperature 98.0 F Pulse Rate 76 73 Respiratory Rate 16 Blood Pressure 230/108 H 182/89 H Pulse Oximetry 99 98 Oxygen Delivery Method Room Air Room Air 04/11/23 21:30 04/11/23 22:00 04/11/23 22:01 Temperature Pulse Rate 75 76 Respiratory Rate Blood Pressure 172/86 H Pulse Oximetry 98 97 Oxygen Delivery Method 04/11/23 22:01 04/12/23 00:20 04/11/23 22:30 Temperature Pulse Rate 80 81 75 Respiratory Rate Blood Pressure 164/77 H Pulse Oximetry 97 97 Oxygen Delivery Method 04/11/23 23:00 04/11/23 23:30 04/12/23 00:00 Temperature Pulse Rate 84 79 75 Respiratory Rate Blood Pressure Pulse Oximetry 97 96 96 Oxygen Delivery Method 04/12/23 00:22 04/12/23 00:22 04/12/23 00:30 Temperature Pulse Rate 82 84 Respiratory Rate Blood Pressure 164/77 H Pulse Oximetry 96 97 Oxygen Delivery Method 04/12/23 01:00 Temperature Pulse Rate 80 Respiratory Rate Blood Pressure Pulse Oximetry 97 Oxygen Delivery Method Oxygen Delivery Method Room Air Narrative Exam Narrative: General: Patient is a arsen well-developed, well-nourished female in no distress at this time. HEENT: Normocephalic, atraumatic, extraocular muscles intact, oral pharynx is clear and mucous membranes are moist. Neck is supple and symmetric, trachea is midline, no adenopathy, no thyroid enlargement, nontender, no masses palpated. Negative for JVD Chest: Normal AP diameter and contour without kyphoscoliosis, Equal chest rise without nasal flaring, retractions, tachypneic or labored breathing. Lungs: Auscultation of all lung ontiveros are clear without adventitious sounds, wheezes, rhonchi, or rales. Cardio: regular rate and rhythm without murmur, rubs, or gallops, no carotid bruit, no cardiac pulsations present. Abdomen: Soft nontender, negative for organomegaly, or masses. Bowel sounds are present in all 4 quadrants without guarding or rebound, no CVA tenderness. Musculoskeletal: Muscle strength and tone are equal, no deformity, crepitus, effusions, cyanosis, clubbing or edema present. Full range of motion intact radial and pedal pulses are normal. Skin: Warm dry and intact without rashes, ulcerations or petechiae. Neuro: Alert and orientated x3, moves all extremities, sensation to touch intac t, no gross deficits noted of cranial nerves. Psych: Patient has a well-kept appearance, appropriate affect, mental status attitude thought context and judgment are appropriate for age. Objective Labs 04/12/23 00:01 04/12/23 00:01 Labs: Laboratory Results - last 24 hr 04/12/23 04/12/23 00:01 00:01 WBC 11.5 H RBC 4.27 Hgb 12.1 Hct 36.7 MCV 85.8 MCH 28.3 MCHC 33.0 RDW 13.0 Plt Count 310 Neut % (Auto) 65.2 Lymph % (Auto) 23.8 L [place] % (Auto) 7.8 Eos % (Auto) 2.4 Baso % (Auto) 0.8 Neut # (Auto) 7500 H Lymph # (Auto) 2700 [place] # (Auto) 900 Eos # (Auto) 300 Baso # (Auto) 100 Sodium 136 L Potassium 4.3 Chloride 100 Carbon Dioxide 32 BUN 11 Creatinine 0.59 Estimated GFR > 60 BUN/Creatinine Ratio 18.6 Glucose 139 H Calcium 8.9 Total Bilirubin 0.6 AST 40 H ALT 39 H Alkaline Phosphatase 89 Total Creatine Kinase 51 Troponin I < 0.012 Total Protein 7.7 Albumin 3.9 Globulin 3.8 Albumin/Globulin Ratio 1.0 Assessment & Plan Assessment & Plan narrative: Angelika Moreland is a 42-year-old female with a history of depression with anxiety, HTN, HLD, NIDDM, and morbid obesity who presented to the ED after she developed approximately 7:30 p.m. yesterday she began to experience numbness and tingling to the left side of her face down her left side of her neck into the left arm and cramping into her left arch left thigh with numbness and tingling up and down the leg. Chest pain, Atypical, acute, present on admission * Resolved-Heart Score:3 * Initial troponin negative-trend x3 * ASA, nitro, morphine as needed, u/a * Exercise stress and echo tomorrow * Telemetry overnight Hypertensive urgency, acute, in the setting of hypertension, essential, chronic, present on admission * ED: 230/108, 182/89, 172/86 * Continue lisinopril NIDDM, hyperglycemia, with hyperlipidemia, acute on chronic, present on ad mission * Patient admitted under diabetic protocols * BS check a.c. HS, low-dose sliding scale * Hold Ozempic * A1c ordered * Continue Lipitor in place of rosuvastatin Obesity, severe, acute on chronic, present on admission * As evidence by BMI of 46.7 * dietary consult ordered regarding nutritional education and information for dietary, lifestyle, exercise, and weight changes. * the patient is at much higher risk for medical and surgical complications due to obesity as it relates to chronic illnesses:, and acute illness. The patient's obesity increases the difficulty and complexity of medical and/or surgical interventions, management and increases the chances of poor outcome such as morbidity and mortality as well as impaired wound healing. Code status: Full Surrogate decision maker: Tom Cummings spouse DVT/VTE prophylaxis: Lovenox and SCDs Disposition: Patient admitted for overnight observation chest pain rule out with risk stratification expected length of stay estimated not to exceed 2 midnights I have utilized all available immediate resources to obtain, update, or review the patient's current medications. I confirmed that the patient's advanced care plan is present, Code status is documented and/or surrogate decision maker is listed in the patient's medical record. I have personally reviewed patient's chart notes from PCP, specialists, diagnostic imaging, and laboratory results. Scores ABCD2 Age >= 60 years: no Initial BP. Either SBP >= 140 or DBP >= 90.: yes Clinical features of the TIA: other symptoms Duration of symptoms: >= 60 minutes History of diabetes: yes ABCD2 Score: 4
[2023-04-12 01:36] LABS: Cholesterol 193 mg/dL (140-199); HDL Cholesterol 32 mg/dL (40-60); LDL Cholesterol Calculated 133 mg/dL (<100); Triglycerides 142 mg/dL (35-150)
[2023-04-12 01:37] LABS: Magnesium 2.1 mg/dL (1.6-2.3)
[2023-04-12 01:46] LABS: NT-proBNP (BNP-Adult 18+) 20 pg/mL (<125)
--- NOTE | 2023-04-12 02:16 | DI.MRI.S_ITS ---
PROCEDURE: MR HEAD/BRAIN WO CON INDICATIONS: Atypical chest pain, numbness tingling TECHNIQUE: Noncontrast axial T1 spin echo, axial T2 fast spin echo, sagittal and axial FLAIR, coronal T2 fast spin echo, axial gradient echo, axial diffusion and ADC through the brain. COMPARISON: None. FINDINGS: Image quality: Degraded by motion artifact. CSF Spaces: Basal cisterns are patent. No extra-axial fluid collections. Ventricles are normal in size and shape. Brain: No intracranial masses or hemorrhage. Lopez/white matter interface is normal. Brainstem appears normal. Diffusion-weighted images demonstrate no acute ischemic insult. No chronic ischemic insults. Normal intravascular flow voids are present. Skull and face: Calvarium has normal marrow signal. Orbits appear normal. Sinuses: Sinuses and mastoids are clear. IMPRESSION: 1. No acute process. No recent infarct. 2. No explanation for paresthesias. Dictated by: Jeff Burgess M.D. on 04/12/2023 at 11:23 Approved by: Jeff Burgess M.D. on 04/12/2023 at 11:24
[2023-04-12 03:22] LABS: Bilirubin Urine UA NEGATIVE (NEGATIVE); Color Urine UA YELLOW; Glucose Urine UA NEGATIVE (Negative); Ketones Urine UA NEGATIVE (NEGATIVE); Leukocyte Esterase Urine UA NEGATIVE (NEGATIVE); Nitrite Urine UA NEGATIVE (Negative); Occult Blood Urine UA 3+ (Negative); Protein Urine UA NEGATIVE (Negative); Specific Gravity Urine UA <=1.005 (1.000-1.035); Urobilinogen Urine UA 0.2 E.U./dL (0.2)
[2023-04-12 03:27] LABS: Appearance Urine UA Slightly Cloudy; pH Urine UA 5.5 (4.5-8.0)
[2023-04-12 03:28] LABS: Bacteria Urine None Seen; Culture Indicated Urine Cult Not Indicated; Squamous Epithelial Cell Urine 0-1 /HPF (0-5/HPF); WBC Urine None Seen (0-5/HPF)
[2023-04-12 03:29] LABS: RBC Urine 30-100/HPF (0-5/HPF)
[2023-04-12 05:52] LABS: INR 1.2 (0.9-1.3); Prothrombin Time 13.3 SECONDS (10.1-12.7)
[2023-04-12 05:56] LABS: Add Manual Diff / Slide Review NO; Basophils Absolute Auto 0 /uL (0-100); Basophils Percent Auto 0.2 % (0-2); Eosinophils Absolute Auto 300 /uL (0-450); Hematocrit 35.8 % (36-46); Lymphocytes Absolute Auto 2200 /uL (1100-4500); Mean Corpuscular HGB Conc 33.5 % (30-36); Mean Corpuscular Hemoglobin 28.8 PG (26-34); Mean Corpuscular Volume 85.9 fL (80-100); Monocytes Absolute Auto 600 /uL (0-900); Monocytes Percent Auto 7.3 % (3-14); Neutrophils Absolute Auto 5600 /uL (1500-7000); Neutrophils Percent Auto 64.5 % (50-75); Platelet Count 285 X10^3/uL (150-400); Red Blood Cell Count 4.16 X10^6/uL (4.0-5.2); Red Cell Distribution Width 13.5 % (11.6-14.8); White Blood Cell Count 8.7 X10^3/uL (4.5-11.0)
[2023-04-12 05:59] LABS: BUN Creatinine Ratio 16.7 (6-22); Blood Urea Nitrogen 9 mg/dL (7-17); Calcium 8.6 mg/dL (8.4-10.2); Carbon Dioxide 30 mmol/L (22-32); Chloride 103 mmol/L (98-107); Estimated Glomerular Filt Rate > 60 mL/min (>60); Glucose 143 mg/dL (70-100); HEMOLYSIS < 15 (0-50); Potassium 4.3 mmol/L (3.4-5.1); Sodium 138 mmol/L (137-145)
[2023-04-12 06:08] LABS: Troponin I < 0.012 ng/mL (0.01-0.034)
[2023-04-12] MEDS: ENOXAPARIN 40 MG/0.4 ML SYRINGE SUBCUT (08:16)
[2023-04-12] MEDS: ESCITALOPRAM 10 MG TABLET PO (08:16)
[2023-04-12] MEDS: ASPIRIN EC 325 MG TABLET PO (08:16)
[2023-04-12] MEDS: ATORVASTATIN 20 MG TABLET PO (08:16)
--- NOTE | 2023-04-12 08:16 | OT.IPNOTE ---
Per nurse, pt is independent and OT not needed, per Dr Chaparro celestin to discharge OT eval orders.
[2023-04-12] MEDS: lisinopriL 20 MG TABLET 40 MG PO (08:17)
--- NOTE | 2023-04-12 08:33 | PT-OP ANOTE ---
OT discussed w/RN and MD and both said pt does not PT or OT d/t being indep in room and okay to DC order.
--- NOTE | 2023-04-12 13:14 | PM.DS.1 ---
History of Present Illness History of Present Illness Date Patient Seen: 04/12/23 Time Patient Seen: 13:14 Chief complaint: Atypical Chest pain Narrative: Per admitting provider , Angelika Moreland is a 42-year-old female with a history of depression with anxiety, HTN, HLD, NIDDM, and morbid obesity who presented to the ED after she developed approximately 7:30 p.m. yesterday she began to experience numbness and tingling to the left side of her face down her left side of her neck into the left arm and cramping into her left arch left thigh with numbness and tingling up and down the leg. This episode lasted approximately 3 hours without associated shortness of breath, dizziness, lightheadedness, changes in vision, difficulty with ambulation, balance, coordination, difficulty swallowing. Symptoms had resolved by the time the patient presented to the ED, has continued to be asymptomatic. Patient also presented with hypertensive urgency 230/108, 182/89, 172/86. Patient notes that her mother and aunt have both had heart attacks and has significant family history of at least 3 other relatives who have from heart attacks. On admit patient denies chest pain, shortness in breath, headache, changes in vision, difficulty swallowing, speech impairment, weakness, numbness, tingling, difficulty with ambulation, recent falls, head injury, LOC, fever, body aches, chills, cough, recent exposure to illness, abdominal pain, nausea, vomiting, urinary incontinence/retention, dysuria, frequency, urgency, hematuria, bowel changes, constipation, incontinence, melena, rashes, recent changes to medication, illness, injury, or trauma. At the time of admit vital signs have improved temp 98?, 164/77, 80, 16, 97% on room air. Labs were predominantly unremarkable with the exception of WBC 11.5, neutrophils 7500, glucose 139, AST 40, ALT 39. Initial troponin negative, CTA negative for PE, EKG NSR at a rate of [address] or T-wave changes. Heart score: 3. Patient admitted for overnight observation atypical chest pain risk stratification. Discharge Providers Provider Date of admission: 04/12/23 01:08 Discharge Date: 04/12/23 Primary care physician: GASPER Blanchard Consults: 04/12/23 01:19 Consult to Dietitian, Adult Routine Comment: Reason For Exam: BMI 46.7 04/12/23 01:20 Consult to Discharge Planning Routine Comment: Consult to Occupational Therapy Evaluate & Treat Comment: Physician Instructions: Evaluate and treat Consult to Physical Therapy Evaluate & Treat Comment: Physician Instructions: Evaluate and Treat Discharge provider: Trevor Mayfield DO Summary Hospital Course Discharge Diagnosis: Chest pain and paresthesias, Atypical, acute, present on admission Hypertensive urgency, acute, in the setting of hypertension, essential, chronic, present on admission NIDDM, hyperglycemia, with hyperlipidemia, acute on chronic, present on admission Obesity, severe, acute on chronic, present on admission Hospital Course: Angelika Moreland is a 42-year-old female with a history of depression with anxiety, HTN, HLD, NIDDM, and morbid obesity who presented to the ED after she developed approximately 7:30 p.m. the day prior numbness and tingling to the left side of her face down her left side of her neck into the left arm and cramping into her left arch left thigh with numbness and tingling up and down the leg.?She underwent treadmill stress testing which was deemed low risk. She also had MRI to evaluate for possible TIA or stroke, which was also unremarkable. Her BP was markedly elevated with exercise, given recent increase from 10 to 40 mg of lisinopril additional agents were not added at this time, but patient was encouraged to follow up with PCP for continued BP management. She was encouraged to monitor her BP at home, and she reported she had a blood pressure cuff. No changes to her home medications are recommended on discharge as TIA was felt to be much less likely. Time Spent with Patient Time spent: Greater than 30 minutes Exam Vital Signs (past 8 hours): - 04/12/23 08:17 04/12/23 09:00 04/12/23 13:00 Temperature 97.3 F L 97.1 F L Pulse Rate 65 65 88 Respiratory Rate 17 17 Blood Pressure 146/76 H 146/76 H 164/90 H Pulse Oximetry 98 98 Oxygen Flow Rate 0 0 Oxygen Delivery Method Room Air Oxygen Flow Rate 0 Narrative Exam Narrative: General: Patient is a arsen well-developed, well-nourished female in no distress at this time. Chest: Normal AP diameter and contour without kyphoscoliosis, Equal chest rise without nasal flaring, retractions, tachypneic or labored breathing. Skin: Warm dry and intact without rashes, ulcerations or petechiae. Neuro: Alert and orientated x3, moves all extremities, sensation to touch intact, no gross deficits noted of cranial nerves. Psych: Patient has a well-kept appearance, appropriate affect, mental status attitude thought context and judgment are appropriate for age. Objective Labs 04/12/23 05:15 04/12/23 05:15 Labs: Laboratory Results - last 24 hr 04/12/23 04/12/23 04/12/23 00:01 00:01 00:01 WBC 11.5 H RBC 4.27 Hgb 12.1 Hct 36.7 MCV 85.8 MCH 28.3 MCHC 33.0 RDW 13.0 Plt Count 310 Neut % (Auto) 65.2 Lymph % (Auto) 23.8 L [place] % (Auto) 7.8 Eos % (Auto) 2.4 Baso % (Auto) 0.8 Neut # (Auto) 7500 H Lymph # (Auto) 2700 [place] # (Auto) 900 Eos # (Auto) 300 Baso # (Auto) 100 PT INR Sodium 136 L Potassium 4.3 Chloride 100 Carbon Dioxide 32 BUN 11 Creatinine 0.59 Estimated GFR > 60 BUN/Creatinine Ratio 18.6 Glucose 139 H Calcium 8.9 Magnesium Total Bilirubin 0.6 AST 40 H ALT 39 H Alkaline Phosphatase 89 Total Creatine Kinase 51 Troponin I < 0.012 NT-Pro-B Natriuret Pep Total Protein 7.7 Albumin 3.9 Globulin 3.8 Albumin/Globulin Ratio 1.0 Triglycerides 142 Cholesterol 193 LDL Cholesterol, Calc 133 H HDL Cholesterol 32 L Urine Color Urine Appearance Urine pH Ur Specific [place] Urine Protein Urine Glucose (UA) Urine Ketones Urine Occult Blood Urine Nitrate Urine Bilirubin Urine Urobilinogen Ur Leukocyte Esterase Urine RBC Urine WBC Ur Squamous Epith Cells Urine Bacteria Ur Culture Indicated? 04/12/23 04/12/23 04/12/23 00:01 00:01 03:15 WBC RBC Hgb Hct MCV MCH MCHC RDW Plt Count Neut % (Auto) Lymph % (Auto) [place] % (Auto) Eos % (Auto) Baso % (Auto) Neut # (Auto) Lymph # (Auto) [place] # (Auto) Eos # (Auto) Baso # (Auto) PT INR Sodium Potassium Chloride Carbon Dioxide BUN Creatinine Estimated GFR BUN/Creatinine Ratio Glucose Calcium Magnesium 2.1 Total Bilirubin AST ALT Alkaline Phosphatase Total Creatine Kinase Troponin I NT-Pro-B Natriuret Pep 20 Total Protein Albumin Globulin Albumin/Globulin Ratio Triglycerides Cholesterol LDL Cholesterol, Calc HDL Cholesterol Urine Color Yellow Urine Appearance Slightly cloudy Urine pH 5.5 Ur Specific [place] <=1.005 Urine Protein Negative Urine Glucose (UA) Negative Urine Ketones Negative Urine Occult Blood 3+ H Urine Nitrate Negative Urine Bilirubin Negative Urine Urobilinogen 0.2 Ur Leukocyte Esterase Negative Urine RBC 30-100/hpf H Urine WBC None seen Ur Squamous Epith Cells 0-1 /hpf Urine Bacteria None seen Ur Culture Indicated? Cult not indicated 04/12/23 04/12/23 04/12/23 05:15 05:15 05:15 WBC 8.7 RBC 4.16 Hgb 12.0 Hct 35.8 L MCV 85.9 MCH 28.8 MCHC 33.5 RDW 13.5 Plt Count 285 Neut % (Auto) 64.5 Lymph % (Auto) 25.0 [place] % (Auto) 7.3 Eos % (Auto) 3.0 Baso % (Auto) 0.2 Neut # (Auto) 5600 Lymph # (Auto) 2200 [place] # (Auto) 600 Eos # (Auto) 300 Baso # (Auto) 0 PT 13.3 H INR 1.2 Sodium 138 Potassium 4.3 Chloride 103 Carbon Dioxide 30 BUN 9 Creatinine 0.54 Estimated GFR > 60 BUN/Creatinine Ratio 16.7 Glucose 143 H Calcium 8.6 Magnesium Total Bilirubin AST ALT Alkaline Phosphatase Total Creatine Kinase Troponin I NT-Pro-B Natriuret Pep Total Protein Albumin Globulin Albumin/Globulin Ratio Triglycerides Cholesterol LDL Cholesterol, Calc HDL Cholesterol Urine Color Urine Appearance Urine pH Ur Specific [place] Urine Protein Urine Glucose (UA) Urine Ketones Urine Occult Blood Urine Nitrate Urine Bilirubin Urine Urobilinogen Ur Leukocyte Esterase Urine RBC Urine WBC Ur Squamous Epith Cells Urine Bacteria Ur Culture Indicated? 04/12/23 05:15 WBC RBC Hgb Hct MCV MCH MCHC RDW Plt Count Neut % (Auto) Lymph % (Auto) [place] % (Auto) Eos % (Auto) Baso % (Auto) Neut # (Auto) Lymph # (Auto) [place] # (Auto) Eos # (Auto) Baso # (Auto) PT INR Sodium Potassium Chloride Carbon Dioxide BUN Creatinine Estimated GFR BUN/Creatinine Ratio Glucose Calcium Magnesium Total Bilirubin AST ALT Alkaline Phosphatase Total Creatine Kinase Troponin I < 0.012 NT-Pro-B Natriuret Pep Total Protein Albumin Globulin Albumin/Globulin Ratio Triglycerides Cholesterol LDL Cholesterol, Calc HDL Cholesterol Urine Color Urine Appearance Urine pH Ur Specific [place] Urine Protein Urine Glucose (UA) Urine Ketones Urine Occult Blood Urine Nitrate Urine Bilirubin Urine Urobilinogen Ur Leukocyte Esterase Urine RBC Urine WBC Ur Squamous Epith Cells Urine Bacteria Ur Culture Indicated? [facility] Medical History Anxiety Deep vein thrombosis (~2010) Diabetes type 2, controlled Dyslipidemia Essential hypertension Hemorrhoid Surgical History Anesthesia History of ankle surgery (~2010) History of bilateral breast implants (~1999) History of section (~2017) History of hernia surgery (~1984) History of tonsillectomy (~1999) Family History (Updated 04/12/23 @ 01:30 by AMANDO Miller) Mother Heart attack Aunt Heart attack Social History household members: spouse and children Smoking Status: Never smoker alcohol intake: current Discharge Plan Discharge Plan Patient Disposition: Home Provider Discharge Comment: You were admitted to the hospital with chest pain and paresthesias. Your BP was quite elevated with exercise, but stress testing and brain MRI were normal. Please continue your recent BP medication change, and continue to monitor BP at home. Follow up with primary care for continued BP management in the coming weeks. Discharge orders & Medications Prescriptions: Continued escitalopram oxalate [Lexapro] 10 mg tablet 10 mg PO DAILY Qty: 90 1RF (DME) blood-glucose meter Kit See Rx Instructions .Route Qty: 1 0RF Rx Instructions: As directed (DME) Blood Glucose Test Strip See Rx Instructions .Route Qty: 100 3RF Rx Instructions: As directed (DME) lancets Misc See Rx Instructions .Route Qty: 100 3RF Rx Instructions: As directed semaglutide 1 mg/dose (2 mg/1.5 mL) pen injector 1 mg SUBCUT QWEEK Qty: 3 1RF Rx Instructions: Take after completing 4 weeks of 0.5 mg dose Ozempic 0.25 mg or 0.5 mg(2 mg/1.5 mL) pen injector 0.25 mg SUBCUT QWEEK Qty: 1.5 1RF Rx Instructions: administer 0.25 mg once weekly x 4 weeks; increase dose to 0.5 mg once weekly after 4 weeks rosuvastatin 10 mg tablet 10 mg PO DAILY Qty: 90 3RF lisinopril 40 mg tablet 40 mg PO DAILY Qty: 90 0RF Follow up/Referrals: Rigo Franks ARNP [Primary Care Provider] - Diet/Activity/Treatments Diet: Diet as Tolerated, Regular and Carb-consistent/Diabetic Activity: As tolerated no restrictions Visit Report/Discharge Packet Instructions: Hypertension (Alternative Therapy), DI for Atypical Chest Pain Stand Alone Forms: Patient Portal/API, Stroke Signs & Symptoms Discharge Data Primary Care Provider: Rigo Franks Attending Provider: Denisse Rodriguez Admit Date/Time: 04/12/23 01:08 Discharges patient from system. Discharge Date/Time: 04/12/23 14:35
--- NOTE | 2023-04-12 14:09 | CM.DANOTE ---
DCP Assessment: Patient is a 42yo F here following tingling/numbness in her left arm/side. PCP: regi flores Payer: commercial insurance and self pay CONTACT ACID PLANT OPERATOR reviewed EMR. From nursing staff/provider, patient will receive a stress test today and likely d/c home afterwords. CONTACT ACID PLANT OPERATOR entered room and introduced self and role. Patient was resting in bed and appeared A/Ox4. Patient lives in [place] with spouse ([phone]) and 5yr old son. Mom (adenike Nelson) lives in the area and is going to come stay with them for a few days to help with patient and patient's son caregiving needs. Patient is independent with ADLs and drives. Mom will come get patient today and transport her home. Plan: home with family in [place] today. Likely no needs from CM team. CM team will continue to follow as needed. JENELLE Ruggiero Discharge Planning/Care Management CM Discharge Assessment Start: 04/12/23 14:07 Freq: Status: Active Protocol: Document 04/12/23 14:07 (Rec: 04/12/23 14:09 [id number]) Discharge Planning Assessment Assigned Power Transmission Engineer JENELLE Oconnor DPOA/Assigned Designee Name Tom Moreland (spouse) Contact Information [phone] Advance Directives? No History Provided By Patient,Medical Record Prior Living Arrangements House Household Members spouse,children Comment mom is coming to stay with them for a few days to help with caring for five year old son. Type of transporation used prior to Drives own vehicle admit Independent with ADL's Yes Is patient alert and oriented? Yes Caregiver for Another Yes: 5yr old son Barriers to Discharge No Discharge Plan Home Transportation Arrangement mom will drive in [place] Whiteboard Updated in Patient Room with Yes name and ext. # of Power Transmission Engineer Review Status In Process Next Review Type Continued Stay Review
[2023-04-12 19:50] LABS: x Labcorp Estim. Avg Glu (eAG) 157 mg/dL (.); x Labcorp Hemoglobin A1c 7.1 % (4.8-5.6)
== END 2023-04-12 14:35 | disposition home or self-care (01) ==
LOC: ED 23:30 → AC 04-12 01:09
PROVIDERS: Admitting Provider Nurse Practitioner Family; Emergency Provider Emergency Medicine; PCP Registered Nurse Diabetes Educator; Referring Provider Emergency Medicine; Visit Provider Nurse Practitioner Family
DX: R07.89 Other chest pain (principal); E11.9 Type 2 diabetes mellitus without complications; I10 Essential (primary) hypertension; E78.5 Hyperlipidemia, unspecified; E66.01 Morbid (severe) obesity due to excess calories
CPT/HCPCS: 36415; 70551; 71275; 80048; 80053; 80061; 81001; 82550; 82962; 83036; 83735; 83880; 84484; 85025; 85610; 93005; 93017; 99284; G0378; C8929; J1650; Q9957; Q9967

== ENCOUNTER 2023-04-15 17:00 | Emergency (ER) | payer OTHER, SELFPAY ==
[2023-04-12 01:33] VITALS: BMI 46.6
[2023-04-15 17:03] VITALS: BP 169/80; PULSE 81; RESP 17; TEMP 36.5; O2SAT 97; BMI 46.3
--- NOTE | 2023-04-15 17:12 | DI.RAD.S_ITS ---
PROCEDURE: XR ANKLE LT MIN 3V INDICATIONS: fall with injury TECHNIQUE: 3 views of the ankle were acquired. COMPARISON: None. FINDINGS: Bones: Status post open reduction and internal fixation of the distal left fibula with lateral plate and screw fixation. No evidence for hardware failure or loosening. No acute fracture seen. Moderate degenerative changes of the left ankle. Subchondral lucencies of the lateral talar dome likely representing sequela of remote osteochondral injury. Overall alignment is anatomic. Ankle mortise is normally aligned. No suspicious bony lesions. Small retrocalcaneal spurring. Soft tissues: No tibiotalar joint effusion. Achilles tendon appears normal. There is soft tissue swelling of the left ankle. IMPRESSION: Status post ORIF of the distal left fibula. No evidence for hardware complication. No acute fracture seen. If there is persistent clinical concern for occult fracture given adequate mechanism of injury, consider repeat imaging in 10-14 days. Dictated by: Feng Miranda M.D. on 04/15/2023 at 16:48 Approved by: Feng Miranda M.D. on 04/15/2023 at 16:50
--- NOTE | 2023-04-15 21:30 | ED.LOWEXIN ---
HPI - Extremity Injury (Lower) General Chief Complaint: Extremity Injury, Lower Stated Complaint: L ankle inj Time Seen by Provider: 04/15/23 21:30 Source: patient Mode of arrival: Wheelchair History of Present Illness HPI Narrative: 42-year-old woman with a history of diabetes, hypertension hyperlipidemia and depression was trying to put some food into a goat trough and did not realize that there was depression just in front of the trough she miss stepped and twisted her left ankle. Initially she was able to walk on it but over the next hour became increasing painful to the point that she was not able to bear weight. She has had a prior fracture and does have plates in this ankle. She comes in for further evaluation. She is not complaining of any additional pain or injury Related Data Previous Rx's Medication Instructions Recorded escitalopram oxalate 10 mg tablet 10 mg PO DAILY #90 tabs 12/27/22 (Lexapro) blood sugar diagnostic (Blood #100 ea 12/28/22 Glucose Test strips) blood-glucose meter #1 ea 12/28/22 lancets #100 ea 12/28/22 lisinopril 40 mg tablet 40 mg PO DAILY #90 tabs 04/10/23 rosuvastatin 10 mg tablet 10 mg PO DAILY #90 tabs 04/10/23 semaglutide 0.25 mg or 0.5 mg (2 0.25 mg (0.2 mL) SUBCUT QWEEK #1.5 04/10/23 mg/1.5 mL) subcutaneous pen mL injector (Ozempic) semaglutide 1 mg/dose (2 mg/1.5 1 mg (0.75 mL) SUBCUT QWEEK #3 mL 04/10/23 mL) subcutaneous pen injector Allergies Allergy/AdvReac Type Severity Reaction Status Date / Time No Known Drug Allergies Allergy Verified 04/15/23 17:03 Review of Systems Review of Systems Narrative: Pertinent positive and negative findings as per HPI Patient History Medical History Anxiety Deep vein thrombosis (~2010) Diabetes type 2, controlled Dyslipidemia Essential hypertension Hemorrhoid Surgical History Anesthesia History of ankle surgery (~2010) History of bilateral breast implants (~1999) History of section (~2017) History of hernia surgery (~1984) History of tonsillectomy (~1999) Family History Mother Heart attack Aunt Heart attack Social History household members: spouse and children Smoking Status: Never smoker alcohol intake: current Smoking Status: Never smoker alcohol intake frequency: holidays/special occasions only Substance Use Type: does not use Exam Initial Vital Signs Initial Vital Signs: Vital Signs Temperature 97.7 F 04/15/23 17:03 Pulse Rate 81 04/15/23 17:03 Respiratory Rate 17 04/15/23 17:03 Blood Pressure 169/80 H 04/15/23 17:03 Pulse Oximetry 97 04/15/23 17:03 Oxygen Delivery Method Room Air 04/15/23 17:03 General: Alert appropriate in no acute distress Respiratory: Able to speak in full sentences, no obvious respiratory distress Skin: No obvious rashes, warm and dry Neurologic: Grossly intact no obvious asymmetries or abnormalities Psych: appropriate insight and affect, cooperative Extremity: Minor swelling over the left medial ankle without significant contusion or abrasion. She is neurovascularly intact Course Orders Ordered: ED Orders 04/15/23 17:12 XR ankle LT min 3V Stat Vital Signs Vital signs: Vital Signs - 8 hr 04/15/23 17:03 Temperature 97.7 F Pulse Rate 81 Respiratory Rate 17 Blood Pressure 169/80 H Pulse Oximetry 97 Oxygen Delivery Method Room Air MDM - Extremity Injury (Lower) MDM Narrative Medical decision making narrative: CC: Ankle pain, acute injury self-limited Complicating co-morbidities: Prior surgery to the area Data collected from: patient, Differential considered: Sprain, fracture Exam documented above, pertinent findings include: Mild swelling medial aspect of the ankle she is able to bear weight Lab Test not indicated today Imaging studies independently reviewed: X-ray left ankle Prior hardware is appropriately in place no new fractures are seen Treatments: Ankle air splint is placed by nursing staff she is neurovascularly intact after that. It is providing comfort and stability. Discussion: Left ankle sprain without evidence of fracture no other complication and no additional injury. Talked about conservative management and reasons for return to the ER or orthopedic follow-up. She is safe for discharge Discharge Plan Departure Patient Disposition: Home Clinical Impression: Ankle sprain Qualifiers: Encounter type: initial encounter Involved ligament of ankle: unspecified ligament Laterality: left Qualified Code(s): S93.402A - Sprain of unspecified ligament of left ankle, initial encounter Instructions: DI for Ankle Sprain Activity Restrictions/Additional Instructions: Thank you for coming in today You did not break your ankle You did sprain her ankle, use the air splint as needed for comfort instability. Keeping the foot elevated and iced can help. Using 400 mg of ibuprofen (2 quah-kew-kfovmfo pills) and 1 Tylenol every 6 hours can be very helpful in controlling pain. If you find that you are getting worse or develop any new symptoms, please feel free to return to the emergency department for further evaluation. Prescriptions: No Action escitalopram oxalate [Lexapro] 10 mg tablet 10 mg PO DAILY Qty: 90 1RF (DME) blood-glucose meter Kit See Rx Instructions .Route Qty: 1 0RF Rx Instructions: As directed (DME) Blood Glucose Test Strip See Rx Instructions .Route Qty: 100 3RF Rx Instructions: As directed (DME) lancets Misc See Rx Instructions .Route Qty: 100 3RF Rx Instructions: As directed semaglutide 1 mg/dose (2 mg/1.5 mL) pen injector 1 mg SUBCUT QWEEK Qty: 3 1RF Rx Instructions: Take after completing 4 weeks of 0.5 mg dose Ozempic 0.25 mg or 0.5 mg(2 mg/1.5 mL) pen injector 0.25 mg SUBCUT QWEEK Qty: 1.5 1RF Rx Instructions: administer 0.25 mg once weekly x 4 weeks; increase dose to 0.5 mg once weekly after 4 weeks rosuvastatin 10 mg tablet 10 mg PO DAILY Qty: 90 3RF lisinopril 40 mg tablet 40 mg PO DAILY Qty: 90 0RF Referrals: Rigo Franks ARNP [Primary Care Provider] - Stand Alone Forms: Patient Portal/API
[2023-04-15 21:36] VITALS: BP 184/95; PULSE 79; RESP 18; O2SAT 98
[2023-04-15] MEDS: IBUPROFEN 400 MG TABLET PO (21:36)
[2023-04-15] MEDS: ACETAMINOPHEN 325 MG TABLET PO (21:37)
== END 2023-04-15 21:41 | disposition home or self-care (01) ==
PROVIDERS: Emergency Provider Emergency Medicine; PCP Registered Nurse Diabetes Educator
DX: S93.402A Sprain of unspecified ligament of left ankle, initial encounter (principal); X50.1XXA Overexertion from prolonged static or awkward postures, initial encounter; Y93.89 Activity, other specified; Y92.9 Unspecified place or not applicable
CPT/HCPCS: 73610; 99283

== ENCOUNTER → 2023-04-23 07:49 | Outpatient (CLI) | payer OTHER, SELFPAY ==
[2023-04-12 01:33] VITALS: BMI 46.6
== END ==
LOC: CAR 07:49
PROVIDERS: PCP Registered Nurse Diabetes Educator; Referring Provider Registered Nurse Diabetes Educator; Visit Provider Registered Nurse Diabetes Educator
DX: R00.2 Palpitations (principal)
CPT/HCPCS: 93242

== ENCOUNTER → 2023-07-24 07:06 | Outpatient (CLI) | payer OTHER, SELFPAY ==
[2023-04-12 01:33] VITALS: BMI 46.6
[2023-07-24 08:27] LABS: Hemoglobin A1C% w Est Avg Glu 6.4 % (4.0-6.0)
[2023-07-24 08:28] LABS: Alanine Aminotransferase 31 IU/L (<35); Albumin 3.8 g/dL (3.5-5.0); Albumin Globulin Ratio 1.2 (1.0-2.8); Alkaline Phosphatase 67 U/L (38-126); Aspartate Aminotransferase 32 IU/L (14-36); BUN Creatinine Ratio 17.5 (6-22); Bilirubin Total 0.7 mg/dL (0.2-1.3); Blood Urea Nitrogen 11 mg/dL (7-17); Calcium 9.7 mg/dL (8.4-10.2); Carbon Dioxide 28 mmol/L (22-32); Chloride 101 mmol/L (98-107); Cholesterol 120 mg/dL (140-199); Estimated Glomerular Filt Rate > 60 mL/min (>60); Globulin 3.1 g/dL (1.7-4.1); Glucose 109 mg/dL (70-100); HDL Cholesterol 34 mg/dL (40-60); HEMOLYSIS < 15 (0-50); LDL Cholesterol Calculated 57 mg/dL (<100); Potassium 3.8 mmol/L (3.4-5.1); Sodium 137 mmol/L (137-145); Total Protein 6.9 g/dL (6.3-8.2); Triglycerides 146 mg/dL (35-150)
== END ==
PROVIDERS: PCP Registered Nurse Diabetes Educator; Referring Provider Registered Nurse Diabetes Educator; Visit Provider Registered Nurse Diabetes Educator
DX: E11.9 Type 2 diabetes mellitus without complications (principal); E78.5 Hyperlipidemia, unspecified; I10 Essential (primary) hypertension; R74.8 Abnormal levels of other serum enzymes
CPT/HCPCS: 36415; 80053; 80061; 83036

== ENCOUNTER → 2024-01-15 06:53 | Outpatient (CLI) | payer OTHER, SELFPAY ==
[2023-04-12 01:33] VITALS: BMI 46.6
== END ==
PROVIDERS: PCP Registered Nurse Diabetes Educator; Referring Provider Registered Nurse Diabetes Educator; Visit Provider Registered Nurse Diabetes Educator
DX: E11.9 Type 2 diabetes mellitus without complications (principal)
CPT/HCPCS: 36415; 83036

== ENCOUNTER → 2024-07-14 06:37 | Outpatient (CLI) | payer OTHER, SELFPAY ==
[2023-04-12 01:33] VITALS: BMI 46.6
[2024-07-14 08:34] LABS: Hematocrit 37.2 % (36-46); Hemoglobin 12.6 g/dL (12.0-16.0); Mean Corpuscular Hemoglobin 29.6 PG (26-34); Platelet Count 345 X10^3/uL (150-400); Red Blood Cell Count 4.27 X10^6/uL (4.0-5.2); Red Cell Distribution Width 13.3 % (11.6-14.8); White Blood Cell Count 8.7 X10^3/uL (4.5-11.0)
[2024-07-14 08:41] LABS: Hemoglobin A1C% w Est Avg Glu 5.7 % (4.0-6.0)
[2024-07-14 08:59] LABS: Alanine Aminotransferase 26 IU/L (<35); Albumin 3.8 g/dL (3.5-5.0); Albumin Globulin Ratio 1.1 (1.0-2.8); Alkaline Phosphatase 64 U/L (38-126); Aspartate Aminotransferase 32 IU/L (14-36); BUN Creatinine Ratio 15.9 (6-22); Blood Urea Nitrogen 10 mg/dL (7-17); Calcium 9.5 mg/dL (8.4-10.2); Carbon Dioxide 28 mmol/L (22-32); Chloride 99 mmol/L (98-107); Cholesterol 133 mg/dL (140-199); Estimated Glomerular Filt Rate > 60 mL/min (>60); Globulin 3.4 g/dL (1.7-4.1); Glucose 114 mg/dL (70-100); HDL Cholesterol 36 mg/dL (40-60); HEMOLYSIS < 15 (0-50); LDL Cholesterol Calculated 81 mg/dL (<100); Potassium 3.8 mmol/L (3.4-5.1); Sodium 135 mmol/L (137-145); Total Protein 7.2 g/dL (6.3-8.2); Triglycerides 79 mg/dL (35-150)
[2024-07-14 09:27] LABS: TSH w/ Reflex to FT4 1.76 uIU/mL (0.47-4.68)
[2024-07-14 09:57] LABS: Creatinine Urine Random 196.4 mg/dL
[2024-07-14 10:08] LABS: Microalbumi Creatinin Ratio Ur 83.5 ug/mg CR (<30); Microalbumin Urine Random 16.4 mg/dL (0-1.6)
== END ==
LOC: LAB 06:38
PROVIDERS: PCP Registered Nurse Diabetes Educator; Referring Provider Registered Nurse Diabetes Educator; Visit Provider Registered Nurse Diabetes Educator
DX: F41.9 Anxiety disorder, unspecified (principal); I10 Essential (primary) hypertension; E78.5 Hyperlipidemia, unspecified; E11.9 Type 2 diabetes mellitus without complications
CPT/HCPCS: 36415; 80053; 80061; 82043; 82570; 83036; 84443; 85027

== ENCOUNTER 2024-11-10 06:35 | Day surgery (SDC) | payer OTHER, SELFPAY ==
[2023-04-12 01:33] VITALS: BMI 46.6
[2024-11-10 07:11] VITALS: BP 114/62; PULSE 75; RESP 20; TEMP 36.1; O2SAT 98
[2024-11-10] MEDS: LACTATED RINGERS 1,000 ML 42 ML IV (07:30)
--- NOTE | 2024-11-10 07:38 | PM.HP.IH.1 ---
History of Present Illness History of Present Illness Date Patient Seen: 11/10/24 Time Patient Seen: 07:39 Chief complaint: Screening Colonoscopy Narrative: 44-year-old white female presents for initial screening colonoscopy. [facility]LY [facility] Medical History (Updated 11/10/24 @ 07:39 by Matt Melendrez MD) Colon cancer screening Microalbuminuria History of DVT (deep vein thrombosis) Hemorrhoid Deep vein thrombosis (~2010) Anxiety Essential hypertension Dyslipidemia Diabetes type 2, controlled Surgical History Anesthesia History of section (~2017) History of tonsillectomy (~1999) History of ankle surgery (~2010) History of bilateral breast implants (~1999) History of hernia surgery (~1984) Family History Mother Heart attack Aunt Heart attack Social History household members: spouse and children Smoking Status: Never smoker alcohol intake: current Meds Home Medications and Allergies Home Medications Medication Instructions Recorded Confirmed Type blood-glucose meter #1 ea 12/28/22 07/14/24 Rx blood sugar diagnostic (Blood #100 ea 01/15/24 07/14/24 Rx Glucose Test strips) lancets #100 ea 01/15/24 07/14/24 Rx cholecalciferol (vitamin D3) 25 25 mcg PO DAILY 07/14/24 11/10/24 History mcg (1,000 unit) capsule escitalopram oxalate 10 mg tablet 10 mg PO DAILY #90 tabs 07/14/24 11/10/24 Rx (Lexapro) rosuvastatin 10 mg tablet 10 mg PO DAILY #90 tabs 07/14/24 11/10/24 Rx lisinopril 20 2 tab PO DAILY #180 tabs 07/17/24 11/10/24 Rx mg-hydrochlorothiazide 12.5 mg tablet sodium,potassium,mag sulfates 17.5 See Rx Instructions PO .COMPLEX 09/26/24 11/10/24 Rx gram-3.13 gram-1.6 gram oral soln #354 mL (Suprep Bowel Prep Kit) tirzepatide 10 mg/0.5 mL 10 mg (0.5 mL) SUBCUT QWEEK #2 mL 10/03/24 11/10/24 Rx subcutaneous pen injector (Mounjaro) tirzepatide 12.5 mg/0.5 mL 12.5 mg (0.5 mL) SUBCUT QWEEK #2 mL 10/03/24 Rx subcutaneous pen injector (Mounjaro) tirzepatide 15 mg/0.5 mL 15 mg (0.5 mL) SUBCUT QWEEK #2 mL 10/03/24 Rx subcutaneous pen injector (Mounjaro) Allergies Allergy/AdvReac Type Severity Reaction Status Date / Time glipizide AdvReac Mild Verified 11/10/24 07:10 metformin AdvReac Mild Verified 11/10/24 07:10 semaglutide [From Ozempic] AdvReac Mild Abdominal Verified 11/10/24 07:10 Pain Review of Systems Review of Systems ROS: Yes All systems reviewed with the patient and are negative except as otherwise documented Exam Vital Signs (past 8 hours): - 11/10/24 07:11 Temperature 97.0 F L Pulse Rate 75 Respiratory Rate 20 Blood Pressure 114/62 Pulse Oximetry 98 Oxygen Delivery Method Room Air Oxygen Delivery Method Room Air Narrative Exam Narrative: Gen: NAD, sitting comfortably in bed, appears well HEENT: Sclera are anicteric, head is normocephalic and atraumatic, trachea is midline. CV: RRR, no JVD Resp: clear to auscultation bilaterally, equal chest wall movement bilaterally Abd: soft, nontender, normoactive bowel sounds Ext: no edema, full range of motion Neuro: Cranial nerves II-XII grossly intact, no focal deficits Skin: No erythema or ecchymosis Assessment & Plan Assessment and plan (1) Colon cancer screening: Status: Acute Assessment & Plan narrative: Patient presents for colonoscopy Risks, benefits, alternatives to colonoscopy explained, including but not limited to bowel perforation or other serious complication requiring surgery at less than 1 in 5000 colonoscopies, abdominal pain, cramping or bleeding and less than 1% of colonoscopies, and the chances that we find a diagnosis that would require further intervention of about 2%. Patient agrees to proceed. Time-Based Coding :: [TOTAL MINUTES] spent with patient and on the chart (including review of chart, obtaining history, exam, reviewing outside data, placing orders, documenting exam and treatment plan, and counseling patient) on [DATE]. [employer] Document charge(s): No
--- NOTE | 2024-11-10 08:03 | PM.OP.COLON ---
Operative Date/Time/Diagnoses Date of procedure: 11/10/24 Time of procedure: 08:03 Pre-op diagnosis: colon screening Post-op diagnosis: same (Diverticulosis, internal hemorrhoids) Procedure & Clinicians Study performed: Colonoscopy Same procedure as scheduled: Yes Indications: Colon screening Surgeon: Matt Melendrez Procedure Notes SCOAP/Timeout: Performed Procedure in detail: Time-out was performed. Mac was induced. Patient was placed in left lateral decubitus position. The perineum was inspected without any gross abnormality. Lubricated pediatric colonoscope was inserted and advanced to the cecum. The terminal ileum was intubated. The colonoscope was withdrawn slowly inspecting the circumference of the colon. Very small polyps may have been missed, prep quality was adequate. Retroflexed view of the rectum showed small, non prolapsed nonbleeding internal hemorrhoids. The scope was withdrawn the patient was taken to PACU in good condition. Scope withdrawal time: 7 Sedation minutes: 14 Findings: divertiulosis and internal hemorrhoids Specimen(s): none sent Complications: none Impression: Diverticulosis, internal hemorrhoids Post-procedure Recommendations: Colonoscopy in 10 years Follow up: as needed Disposition: PACU
[2024-11-10 08:04] VITALS: BP 81/61; PULSE 95; RESP 14; TEMP 36.2; O2SAT 93
[2024-11-10 08:09] VITALS: BP 106/86; PULSE 87; RESP 16; O2SAT 97
[2024-11-10 08:14] VITALS: BP 118/79; PULSE 81; RESP 16; TEMP 36.2; O2SAT 99
[2024-11-10 08:20] VITALS: BP 116/74; PULSE 78; RESP 14; O2SAT 98
== END 2024-11-10 08:35 | disposition home or self-care (01) ==
PROVIDERS: PCP Registered Nurse Diabetes Educator; Referring Provider Surgery; Visit Provider Surgery
PROC: 0DJD8ZZ Inspection of Lower Intestinal Tract, Via Natural or Artificial Opening Endoscopic (ICD-10-PCS; CPT 45378; principal; 2024-11-10 07:45)
DX: Z12.11 Encounter for screening for malignant neoplasm of colon (principal); K57.30 Diverticulosis of large intestine without perforation or abscess without bleeding; K64.8 Other hemorrhoids
CPT/HCPCS: 45378; J2704

== ENCOUNTER → 2024-11-17 14:40 | Outpatient (CLI) | payer OTHER, SELFPAY ==
[2023-04-12 01:33] VITALS: BMI 46.6
[2024-11-17 18:07] LABS: Influenza A - CEPHEID Flu A NEGATIVE (NEGATIVE); Influenza B - CEPHEID Flu B NEGATIVE (NEGATIVE); Respiratory Syncytial Virus Negative (Negative)
[2024-11-17 18:11] LABS: COVID-19 CEPHEID 4-PLEX PCR Negative (Negative)
== END ==
PROVIDERS: PCP Registered Nurse Diabetes Educator; Visit Provider Registered Nurse
DX: J02.9 Acute pharyngitis, unspecified (principal); R05.1 Acute cough
CPT/HCPCS: 0241U; 87070

== ENCOUNTER → 2024-12-26 17:22 | Outpatient (CLI) | payer OTHER, SELFPAY ==
[2023-04-12 01:33] VITALS: BMI 46.6
[2024-12-26 18:46] LABS: Influenza A - CEPHEID Flu A NEGATIVE (NEGATIVE); Influenza B - CEPHEID Flu B NEGATIVE (NEGATIVE); Respiratory Syncytial Virus Negative (Negative)
[2024-12-26 19:10] LABS: COVID-19 CEPHEID 4-PLEX PCR Negative (Negative)
== END ==
PROVIDERS: PCP Registered Nurse Diabetes Educator; Visit Provider Physician Assistant
DX: R05.9 Cough, unspecified (principal)
CPT/HCPCS: 0241U

== ENCOUNTER → 2024-12-26 17:30 | Outpatient (CLI) | payer OTHER, SELFPAY ==
[2023-04-12 01:33] VITALS: BMI 46.6
--- NOTE | 2024-12-26 17:31 | DI.RAD.S_ITS ---
PROCEDURE: XR CHEST 2V INDICATIONS: Cough TECHNIQUE: 2 views of the chest were acquired. COMPARISON: [facility], CR, XR CHEST 1V, 07/19/2022, 19:00. FINDINGS: Surgical changes and devices: None. Lungs and pleura: Lungs are clear. No pleural effusions or pneumothorax. Mediastinum: Mediastinal contours are normal. Heart size is normal. Bones and chest wall: No suspicious bony abnormalities. Soft tissues appear unremarkable. IMPRESSION: No acute cardiopulmonary abnormality is seen. Dictated by: Julius Joe M.D. on 12/26/2024 at 17:49 Approved by: Julius Joe M.D. on 12/26/2024 at 17:50
== END ==
LOC: RAD 17:31
PROVIDERS: PCP Registered Nurse Diabetes Educator; Referring Provider Physician Assistant; Visit Provider Physician Assistant
DX: R05.9 Cough, unspecified (principal)
CPT/HCPCS: 0241U; 71046

== ENCOUNTER → 2025-01-17 07:45 | Outpatient (CLI) | payer OTHER, SELFPAY ==
[2023-04-12 01:33] VITALS: BMI 46.6
[2025-01-17 08:32] LABS: Hemoglobin A1C% w Est Avg Glu 5.3 % (4.0-6.0)
[2025-01-17 09:18] LABS: Creatinine Urine Random 149.97 mg/dL
[2025-01-17 09:23] LABS: Microalbumin Urine Random 0.7 mg/dL (0-1.6)
== END ==
LOC: LAB 07:47
PROVIDERS: PCP Registered Nurse Diabetes Educator; Referring Provider Registered Nurse Diabetes Educator; Visit Provider Registered Nurse Diabetes Educator
DX: E11.9 Type 2 diabetes mellitus without complications (principal); I10 Essential (primary) hypertension; R80.9 Proteinuria, unspecified
CPT/HCPCS: 36415; 82043; 82570; 83036

== ENCOUNTER 2025-02-11 11:33 | Emergency (ER) | payer OTHER, SELFPAY ==
[2023-04-12 01:33] VITALS: BMI 46.6
[2025-02-11] VITALS (8 sets, daily range): BP systolic 100–148; BP diastolic 57–88; PULSE 66–80; RESP 14–19; TEMP 36.7–36.9; O2SAT 97–100; BMI 42.0
--- NOTE | 2025-02-11 11:36 | DI.RAD.S_ITS ---
PROCEDURE: XR CHEST 1V INDICATIONS: Chest Pain TECHNIQUE: One view of the chest was acquired. COMPARISON: [facility], CR, XR CHEST 2V, 12/26/2024, 17:27. FINDINGS: Surgical changes and devices: None. Lungs and pleura: Lungs are clear. No pleural effusions or pneumothorax. Mediastinum: Mediastinal contours appear normal. Heart size is normal. Bones and chest wall: No suspicious bony lesions. Overlying soft tissues appear unremarkable. IMPRESSION: No acute pulmonary process. Dictated by: Joyce Lan M.D. on 02/11/2025 at 12:06 Approved by: Joyce Lan M.D. on 02/11/2025 at 12:06
--- NOTE | 2025-02-11 11:41 | EKG_ITS ---
[place] [id number] [place] [id number] Test Date: 2025-02-11 Pat Name: Angelika Moreland Department: Room: Gender: Female [employer]: RYANN : 1980 Requested By: Order Number: [id number] Reading MD: Zana Alex MD Measurements Intervals [place] Rate: 77 P: 29 AR: 166 QRS: -8 QRSD: 90 T: -16 QT: 378 QTc: 427 Interpretive Statements Normal sinus rhythm Minimal voltage criteria for LVH, may be normal variant ( R in aVL ) Cannot rule out Anterior infarct , age undetermined Electronically Signed On 02-12-2025 7:40:47 PDT by Zana Alex MD
[2025-02-11] MEDS: ASPIRIN 81 MG CHEW TAB 324 MG PO (12:04)
[2025-02-11] MEDS: ONDANSETRON 4 MG/2 ML INJ IV (12:04)
[2025-02-11 12:08] LABS: Add Manual Diff / Slide Review NO; Basophils Absolute Auto 100 /uL (0-100); Basophils Percent Auto 0.9 % (0-2); Eosinophils Absolute Auto 200 /uL (0-450); Eosinophils Percent Auto 1.6 % (2-4); Hematocrit 37.3 % (36-46); Hemoglobin 12.7 g/dL (12.0-16.0); Lymphocytes Absolute Auto 2400 /uL (1100-4500); Lymphocytes Percent Auto 24.4 % (25-40); Mean Corpuscular HGB Conc 34.1 % (30-36); Mean Corpuscular Hemoglobin 29.4 PG (26-34); Mean Corpuscular Volume 86.3 fL (80-100); Monocytes Absolute Auto 800 /uL (0-900); Monocytes Percent Auto 7.9 % (3-14); Neutrophils Absolute Auto 6400 /uL (1500-7000); Neutrophils Percent Auto 65.2 % (50-75); Platelet Count 336 X10^3/uL (150-400); Red Blood Cell Count 4.32 X10^6/uL (4.0-5.2); White Blood Cell Count 9.8 X10^3/uL (4.5-11.0)
[2025-02-11 12:16] LABS: INR 1.1 (0.9-1.3); Prothrombin Time 12.2 SECONDS (9.4-12.5)
[2025-02-11 12:18] LABS: PTT Partial Thromboplastin Tim 35 SECONDS (25.1-36.5)
[2025-02-11 12:20] LABS: Alanine Aminotransferase 24 IU/L (<35); Albumin 4.4 g/dL (3.5-5.0); Albumin Globulin Ratio 1.2 (1.0-2.8); Alkaline Phosphatase 59 U/L (38-126); Aspartate Aminotransferase 32 IU/L (14-36); BUN Creatinine Ratio 18.6 (6-22); Bilirubin Total 1.1 mg/dL (0.2-1.3); Blood Urea Nitrogen 13 mg/dL (7-17); Calcium 9.4 mg/dL (8.4-10.2); Carbon Dioxide 30 mmol/L (22-32); Chloride 100 mmol/L (98-107); Creatine Kinase 63 U/L (30-135); Estimated Glomerular Filt Rate > 60 mL/min (>60); Globulin 3.6 g/dL (1.7-4.1); Glucose 109 mg/dL (70-99); HEMOLYSIS 19 (0-50); Lipase 87 U/L (23-300); Potassium 3.7 mmol/L (3.4-5.1); Sodium 138 mmol/L (137-145)
[2025-02-11 12:32] LABS: NT-proBNP (BNP-Adult 18+) < 20 pg/mL (<125); Troponin I < 0.012 ng/mL (0.01-0.034)
--- NOTE | 2025-02-11 12:53 | ED_ITS ---
HPI - Arrhythmia/Palpitations General Chief Complaint: Arrhythmia/Palpitations Stated Complaint: irregular heartbeat, RODRIGUEZ, SOB Time Seen by Provider: 02/11/25 12:52 Source: patient, RN notes reviewed and old records reviewed Mode of arrival: Ambulatory Limitations: no limitations History of Present Illness HPI narrative: 44-year-old female history of hypertension dyslipidemia, prior PVCs who presents with complaint of palpitations felt overnight patient states was throughout the night. She was able to fall asleep eventually but woke up still has a little bit of symptoms. It has since resolved. She states this will happen intermittently she was had workup with stress test, echo in [facility] and was told she had extra PVCs. Patient states she had a little bit of chest pressure last night with it but did not feel short of breath. Woke up this morning had headache has a little bit off and was very tired. She states she had some nausea but no vomiting. She states that is resolved. Has a little bit of mild diarrhea. She notes a little bit of nasal congestion and feels like she might be developing a cold. Denies any swelling of her extremities. No lightheadedness or passing out. States she just felt very off and so came for evaluation. States daily medications include Lexapro, lisinopril/hydrochlorothiazide, medication for cholesterol and Mounjaro. No new medications. Has a history of breast implants, left ankle surgery. Has not had any prior cardiac interventions. No known drug allergies. No tobacco, occasional alcohol, no regular recreational drugs states she had marijuana week ago. Rigo Franks is her primary care. No long distance travel or sitting for prolonged periods. No estrogen. Related Data Home Medications Medication Instructions Recorded Confirmed cholecalciferol (vitamin D3) 25 25 mcg PO DAILY 07/14/24 01/19/25 mcg (1,000 unit) capsule Previous Rx's Medication Instructions Recorded blood-glucose meter #1 ea 12/28/22 blood sugar diagnostic (Blood #100 ea 01/15/24 Glucose Test strips) lancets #100 ea 01/15/24 escitalopram oxalate 10 mg tablet 10 mg PO DAILY #90 tabs 07/14/24 (Lexapro) rosuvastatin 10 mg tablet 10 mg PO DAILY #90 tabs 07/14/24 lisinopril 20 2 tab PO DAILY #180 tabs 10/17/24 mg-hydrochlorothiazide 12.5 mg tablet tirzepatide 15 mg/0.5 mL 15 mg (0.5 mL) SUBCUT QWEEK #2 mL 02/11/25 subcutaneous pen injector (Rajinder) Allergies Allergy/AdvReac Type Severity Reaction Status Date / Time glipizide AdvReac Mild Verified 01/19/25 08:05 metformin AdvReac Mild Verified 01/19/25 08:05 semaglutide [From Ozempic] AdvReac Mild Abdominal Verified 01/19/25 08:05 Pain Review of Systems Review of Systems ROS Unobtainable: All systems reviewed & are unremarkable except as noted in HPI and below Patient History Medical History Colon cancer screening Microalbuminuria History of DVT (deep vein thrombosis) Hemorrhoid Deep vein thrombosis (~2010) Anxiety Essential hypertension Dyslipidemia Diabetes type 2, controlled Surgical History Anesthesia History of section (~2017) History of tonsillectomy (~1999) History of ankle surgery (~2010) History of bilateral breast implants (~1999) History of hernia surgery (~1984) Family History Mother Heart attack Aunt Heart attack Social History household members: spouse and children Smoking Status: Never smoker alcohol intake: current Smoking Status: Never smoker alcohol intake frequency: holidays/special occasions only Exam Narrative Exam Narrative: GENERAL: Alert and oriented x three, female in no acute distress HEENT: Head normocephalic, atraumatic, EOMI, pupils reactive, mild nasal congestion, face symmetric, moist mucous membranes NECK: Supple, full range of motion CARDIOVASCULAR: Regular rate and rhythm without murmurs, rubs or gallops. No JVD. No edema bilateral lower extremities RESPIRATORY: Breath sounds equal bilaterally, no wheezes rales or rhonchi. ABDOMEN: Soft, nontender. Normoactive bowel sounds all 4 quadrants. No guarding or rebound, rigidity, no mass : No CVA tenderness EXTREMITIES: Normal range of motion, no clubbing or edema. Neurovascularly intact NEUROLOGICAL: Cranial nerves II through XII grossly intact. Moving all extremities SKIN: Warm, dry, no petechiae, no rashes or lesions. Initial Vital Signs Initial Vital Signs: Vital Signs Temperature 98.4 F 02/11/25 11:37 Pulse Rate 76 02/11/25 11:37 Respiratory Rate 18 02/11/25 11:37 Blood Pressure 148/76 H 02/11/25 11:37 Pulse Oximetry 100 02/11/25 11:37 Oxygen Delivery Method Room Air 02/11/25 11:37 Course Orders Ordered: ED Orders 02/11/25 11:36 XR chest 1V Stat EKG-12 Lead Stat RT Consult Eval and Treat NOW 02/11/25 11:55 Complete Blood Count AUTO DIFF Stat Comprehensive Metabolic Panel Stat Lactate (Lactic Acid) Stat Lipase Stat Magnesium Stat NT-proBNP (BNP-Adult 18+) Stat PTT Partial Thromboplastin [place] Stat Prothrombin Time INR Stat Troponin & CK Cardiac Panel Stat Discontinued Medications Aspirin (Aspirin 81 Mg Chew Tab) 324 mg PO NOW ONE Stop: 02/11/25 11:37 Last Admin: 02/11/25 12:04 Dose: 324 mg Documented By: TRENTON Ondansetron HCl (Ondansetron 4 Mg/2 Ml Inj) 4 mg IV NOW ONE Stop: 02/11/25 12:02 Last Admin: 02/11/25 12:04 Dose: 4 mg Documented By: TRENTON Vital Signs Vital signs: Vital Signs - 8 hr 02/11/25 11:37 02/11/25 11:46 02/11/25 11:52 Temperature 98.4 F Pulse Rate 76 73 80 Respiratory Rate 18 Blood Pressure 148/76 H Pulse Oximetry 100 100 99 Oxygen Delivery Method Room Air 02/11/25 11:52 02/11/25 12:00 02/11/25 12:00 Temperature Pulse Rate 76 Respiratory Rate 14 Blood Pressure 131/78 140/88 Pulse Oximetry 99 Oxygen Delivery Method 02/11/25 12:30 02/11/25 12:30 02/11/25 13:00 Temperature Pulse Rate 67 Respiratory Rate 15 Blood Pressure 125/75 114/70 Pulse Oximetry 97 Oxygen Delivery Method 02/11/25 13:00 02/11/25 13:30 02/11/25 13:30 Temperature Pulse Rate 66 66 Respiratory Rate 19 18 Blood Pressure 100/57 L Pulse Oximetry 97 97 Oxygen Delivery Method 02/11/25 13:38 Temperature 98.1 F Pulse Rate 71 Respiratory Rate 18 Blood Pressure 112/61 Pulse Oximetry 99 Oxygen Delivery Method Room Air MDM - Arrhythmia/Palpitations Lab Data 02/11/25 11:55 02/11/25 11:55 Labs: Lab Results 02/11/25 Range/Units 11:55 WBC 9.8 (4.5-11.0) X10^3/uL RBC 4.32 (4.0-5.2) X10^6/uL Hgb 12.7 (12.0-16.0) g/dL Hct 37.3 (36-46) % MCV 86.3 (80-100) fL MCH 29.4 (26-34) PG MCHC 34.1 (30-36) % RDW 14.0 (11.6-14.8) % Plt Count 336 (150-400) X10^3/uL Neut % (Auto) 65.2 (50-75) % Lymph % (Auto) 24.4 L (25-40) % Calvert % (Auto) 7.9 (3-14) % Eos % (Auto) 1.6 L (2-4) % Baso % (Auto) 0.9 (0-2) % Neut # (Auto) 6400 (7709-9595) /uL Lymph # (Auto) 2400 (8610-3933) /uL Calvert # (Auto) 800 (0-900) /uL Eos # (Auto) 200 (0-450) /uL Baso # (Auto) 100 (0-100) /uL PT 12.2 (9.4-12.5) SECONDS INR 1.1 (0.9-1.3) APTT 35 (25.1-36.5) SECONDS Sodium 138 (137-145) mmol/L Potassium 3.7 (3.4-5.1) mmol/L Chloride 100 (98-107) mmol/L Carbon Dioxide 30 (22-32) mmol/L BUN 13 (7-17) mg/dL Creatinine 0.70 (0.52-1.04) mg/dL Estimated GFR > 60 (>60) mL/min BUN/Creatinine Ratio 18.6 (6-22) Glucose 109 H (70-99) mg/dL Lactate 1.0 (0.7-2.1) mmol/L Calcium 9.4 (8.4-10.2) mg/dL Magnesium 2.0 (1.6-2.3) mg/dL Total Bilirubin 1.1 (0.2-1.3) mg/dL AST 32 (14-36) IU/L ALT 24 (<35) IU/L Alkaline Phosphatase 59 (38-126) U/L Total Creatine Kinase 63 (30-135) U/L Troponin I < 0.012 (0.01-0.034) ng/mL NT-Pro-B Natriuret Pep < 20 (<125) pg/mL Total Protein 8.0 (6.3-8.2) g/dL Albumin 4.4 (3.5-5.0) g/dL Globulin 3.6 (1.7-4.1) g/dL Albumin/Globulin Ratio 1.2 (1.0-2.8) Lipase 87 (23-300) U/L ECG Data Attestation: I personally reviewed and interpreted this ECG as follows: Prior ECG tracings: available for review Interpretation: Sinus rhythm rate of 77, RI 166 QRS of 90 QTC of [address] elevation depression. Patient was prior EKG from 04/11/2023 which appears similar with no acute ST changes. [facility] Narrative Medical decision making narrative: EKG shows sinus rhythm no acute changes appears similar to prior from 2022. Labs show normal white count hemoglobin and platelets, coags are negative, electrolytes are otherwise appropriate glucose is 109 lactate 1 LFTs are negative with a troponin less than 0.012 and a BNP less than 20. Chest x-ray shows no acute change Patient had negative stress test in March of 2023 read as low risk with mildly reduced exercise tolerance and hypertension at rest with a hypertensive response to exercise. Patient was had a ZIO patch in May of 2023 which showed to SVT runs the fastest lasting 6 beats the maxillary to of 182 a fast his interval was also the longest. Patient had echo on April 12, 2023 Echo showed mildly increased left ventricular thickness with normal size normal wall motion and normal systolic function EF of 60-65% right ventricle was grossly normal with probable normal systolic function no significant valvular abnormalities no prior echo for comparison at that time no pericardial effusion. 44-year-old female history of irregular heartbeat which he describes as PVCs. Patient states she was having symptoms last night was awake for it has a little bit different than her usual felt very tired little bit off today but notes she feels like she might be also be getting a cold. No recent medication changes workup here does not show any acute change she did have sounds like very brief 6 beat episode of SVT on prior ZIO patch and states that her apple watch was showing what sounds like a PVCs although it is currently did she can not show me what she was saw. She was feeling improved currently. Discussed follow up with primary care if having frequent or regular symptoms would recommend repeat eval. Discussed return precautions. Discharge Plan Departure Patient Disposition: Home Clinical Impression: Palpitations Instructions: DI for Palpitations Activity Restrictions/Additional Instructions: Follow up with your physician for recheck if you are having any persistent symptoms. Please return if you have new chest pain, shortness of breath, lightheadedness or passing out, fevers, persistent vomiting, new swelling of your extremities or other new or concerning changes. Prescriptions: No Action Mounjaro 15 mg/0.5 mL pen injector 15 mg SUBCUT QWEEK Qty: 2 6RF (DME) Blood Glucose Test Strip See Rx Instructions .Route Qty: 100 3RF Rx Instructions: As directed (DME) lancets Misc See Rx Instructions .Route Qty: 100 3RF Rx Instructions: As directed cholecalciferol (vitamin D3) 25 mcg (1,000 unit) capsule 25 mcg PO DAILY escitalopram oxalate [Lexapro] 10 mg tablet 10 mg PO DAILY Qty: 90 3RF rosuvastatin 10 mg tablet 10 mg PO DAILY Qty: 90 3RF lisinopril-hydrochlorothiazide 20-12.5 mg tablet 2 tab PO DAILY Qty: 180 3RF (DME) blood-glucose meter Kit See Rx Instructions .Route Qty: 1 0RF Rx Instructions: As directed Referrals: Rigo Franks ARNP [Primary Care Provider] - Stand Alone Forms: Patient Portal/API/Survey
== END 2025-02-11 13:39 | disposition home or self-care (01) ==
PROVIDERS: Emergency Provider Emergency Medicine; PCP Registered Nurse Diabetes Educator
DX: R00.2 Palpitations (principal); F12.90 Cannabis use, unspecified, uncomplicated
CPT/HCPCS: 36415; 71045; 80053; 82550; 83605; 83690; 83735; 83880; 84484; 85025; 85610; 85730; 93005; 96374; 99284; J2405

== ENCOUNTER → 2025-07-13 06:37 | Outpatient (CLI) | payer OTHER, SELFPAY ==
[2023-04-12 01:33] VITALS: BMI 46.6
[2025-07-13 07:39] LABS: Hematocrit 37.5 % (36-46); Hemoglobin 12.6 g/dL (12.0-16.0); Mean Corpuscular HGB Conc 33.5 % (30-36); Mean Corpuscular Hemoglobin 28.9 PG (26-34); Mean Corpuscular Volume 86.4 fL (80-100); Platelet Count 327 X10^3/uL (150-400)
[2025-07-13 07:48] LABS: Hemoglobin A1C% w Est Avg Glu 5.5 % (4.0-6.0)
[2025-07-13 07:59] LABS: Alanine Aminotransferase 17 IU/L (<35); Albumin 4.1 g/dL (3.5-5.0); Albumin Globulin Ratio 1.2 (1.0-2.8); Alkaline Phosphatase 57 U/L (38-126); Blood Urea Nitrogen 13 mg/dL (7-17); Calcium 9.1 mg/dL (8.4-10.2); Carbon Dioxide 27 mmol/L (22-32); Chloride 103 mmol/L (98-107); Cholesterol 145 mg/dL (140-199); Estimated Glomerular Filt Rate > 60 mL/min (>60); Globulin 3.3 g/dL (1.7-4.1); Glucose 118 mg/dL (70-99); HDL Cholesterol 40 mg/dL (40-60); HEMOLYSIS < 15 (0-50); Potassium 4.1 mmol/L (3.4-5.1); Sodium 137 mmol/L (137-145); Total Protein 7.4 g/dL (6.3-8.2); Triglycerides 111 mg/dL (35-150)
[2025-07-13 08:18] LABS: Microalbumi Creatinin Ratio Ur 4.0 ug/mg CR (<30)
[2025-07-13 08:30] LABS: TSH w/ Reflex to FT4 2.00 uIU/mL (0.47-4.68)
== END ==
PROVIDERS: PCP Registered Nurse Diabetes Educator; Referring Provider Registered Nurse Diabetes Educator; Visit Provider Registered Nurse Diabetes Educator
DX: R80.9 Proteinuria, unspecified (principal); I10 Essential (primary) hypertension; E78.5 Hyperlipidemia, unspecified; E11.9 Type 2 diabetes mellitus without complications
CPT/HCPCS: 36415; 80053; 80061; 82043; 82570; 83036; 84443; 85027

== ENCOUNTER 2025-07-23 20:11 | Emergency (ER) | payer OTHER, SELFPAY ==
[2023-04-12 01:33] VITALS: BMI 46.6
[2025-07-23 20:26] VITALS: BP 162/92; PULSE 79; RESP 17; TEMP 36.6; O2SAT 97
--- NOTE | 2025-07-23 21:13 | ED.NAVMDI ---
HPI - Nausea/Vomiting/Diarrhea General Chief complaint: Nausea/Vomiting/Diarrhea Stated complaint: diarrhea, nausea x 2 days Time Seen by Provider: 07/23/25 20:40 Source: patient Mode of arrival: Ambulatory History of Present Illness HPI Narrative: 45-year-old female with varied complaints. Recently ate hot food and sustained a burn to her left upper palate/gums, no swelling to the face, no trouble swallowing. Since yesterday also has had crampy abdominal discomfort, loose stools, no black or red or mucoid stools. Some nausea without emesis. No recent exposure to antibiotics. No recent exposure to persons with similar GI symptoms. Denies cough shortness of breath. She also has had some left knee pain without specific injury. No swelling of the knee. No fevers or chills. Related Data Home Medications ?Medication ?Instructions ?Recorded ?Confirmed cholecalciferol (vitamin D3) 25 25 mcg PO DAILY 07/14/24 07/13/25 mcg (1,000 unit) capsule Previous Rx's ?Medication ?Instructions ?Recorded blood-glucose meter #1 ea 12/28/22 blood sugar diagnostic (Blood #100 ea 01/15/24 Glucose Test strips) lancets #100 ea 01/15/24 escitalopram oxalate 10 mg tablet 10 mg PO DAILY #90 tabs 07/13/25 (Lexapro) lisinopril 20 2 tab PO DAILY #180 tabs 07/13/25 mg-hydrochlorothiazide 12.5 mg tablet rosuvastatin 10 mg tablet 10 mg PO DAILY #90 tabs 07/13/25 tirzepatide 15 mg/0.5 mL 15 mg (0.5 mL) SUBCUT QWEEK #2 mL 07/13/25 subcutaneous pen injector (Jesus Albertoungoyoro) Allergies Allergy/AdvReac Type Severity Reaction Status Date / Time glipizide AdvReac Mild Verified 07/23/25 20:27 metformin AdvReac Mild Verified 07/23/25 20:27 semaglutide (From Ozempic) AdvReac Mild Abdominal Verified 07/23/25 20:27 Pain Patient History Medical History Colon cancer screening Microalbuminuria History of DVT (deep vein thrombosis) Hemorrhoid Deep vein thrombosis (~2010) Anxiety Essential hypertension Dyslipidemia Diabetes type 2, controlled Surgical History Anesthesia History of section (~2017) History of tonsillectomy (~1999) History of ankle surgery (~2010) History of bilateral breast implants (~1999) History of hernia surgery (~1984) Family History Mother Heart attack Aunt Heart attack Social History household members: spouse and children alcohol intake: current alcohol intake frequency: holidays/special occasions only Exam Narrative Exam Narrative: GENERAL: Well-developed patient, in mild distress. HEAD: Atraumatic. Normocephalic. EYES: Pupils equal round and reactive. Extraocular motions intact. No scleral icterus. No injection or drainage. ENT: Nose without bleeding, purulent drainage. Airway patent, speaking with normal phonation, small shallow erythematous area left upper palate mesial gumline consistent with reported hot food exposure local burn. No obvious cellulitis changes at this time. No buccal/cheek swelling. NECK: Trachea midline. Non tender CARDIOVASCULAR: Regular rate and rhythm without murmurs, gallops, or rubs. RESPIRATORY: Clear to auscultation. Breath sounds equal bilaterally. No wheezes, rales, or rhonchi. GASTROINTESTINAL: Obese, Abdomen soft, non-tender, nondistended. Bowel tones not particularly increased or decreased, no tinkles or rushes. EXTREMITIES: No edema or joint tenderness. BACK: Nontender without deformity or crepitance. No flank tenderness. NEURO: AOx3. Motor functions grossly nonfocal. SKIN: No rash or erythema of visible areas Initial Vital Signs Initial Vital Signs: Vital Signs Temperature 98 F 07/23/25 20:26 Pulse Rate 79 07/23/25 20:26 Respiratory Rate 17 07/23/25 20:26 Blood Pressure 162/92 H 07/23/25 20:26 Pulse Oximetry 97 07/23/25 20:26 Oxygen Delivery Method Room Air 07/23/25 20:26 Course Orders Ordered: Discontinued Medications Sodium Chloride (Normal Saline 0.9%) 1,000 mls @ 1,000 mls/hr IV BOLUS ONE Stop: 07/23/25 21:40 Loperamide HCl (Loperamide 2 Mg Capsule) 2 mg PO NOW ONE Stop: 07/23/25 21:20 Last Admin: 07/23/25 21:39 Dose: 2 mg Documented By: DENNIS Ondansetron HCl (Ondansetron 4 Mg Odt Prepack) 1 bottle MISC DIRECTED ONE Stop: 07/23/25 21:20 Last Admin: 07/23/25 21:40 Dose: 1 bottle Documented By: DENNIS Vital Signs Vital signs: Vital Signs - 8 hr 07/23/25 20:26 Temperature 98 F Pulse Rate 79 Respiratory Rate 17 Blood Pressure 162/92 H Pulse Oximetry 97 Oxygen Delivery Method Room Air MDM - Nausea/Vomiting/Diarrhea Lab Data Labs: Lab Results 07/23/25 Range/Units 20:25 SARS-CoV-2 (PCR) Negative (Negative) Influenza A (RT-PCR) Flu a negative (NEGATIVE) Influenza B (RT-PCR) Flu b negative (NEGATIVE) RSV (PCR) Negative (Negative) MDM Narrative Medical decision making narrative: 45-year-old female with varied complaints that are not necessarily obviously related. Recent hot food burn to left upper palate/gums, local burn seems well healing, not obviously infected. Recent loose stools since yesterday, afebrile, sirs screen negative, no tachycardia, abdomen benign without tenderness. Consider loperamide dose, she would like to have this, dose given in the emergency department. Some nausea without emesis. We will give ODT ondansetron home pack to use if needed. We discussed labs and IV fluids, she feels comfortable with no further evaluation. Discharged home. Return precautions discussed. Discharge Plan Departure Patient Disposition: Home Clinical Impression: Burn of soft palate, Diarrhea, Nausea Activity Restrictions/Additional Instructions: Varied complaints not necessarily related. Left upper soft tissue palate burn from hot food, on examination there is a shallow ulcer consistent with healing wound, not obviously infected, no antibiotics indicated at this time. Recent diarrhea, no fever on exam triage vitals, abdomen soft without tenderness. Could consider dose of [id number] loperamide to help slow down diarrhea, oral dose given in the emergency department. Nausea but no emesis, home pack of oral dissolvable ondansetron to control nausea dispensed, to use if needed. Initial triage orders for labs and stool studies and IV fluids, however after examination and discussion, these evaluation studies and treatments are held. Discharged home. Follow up with your regular provider advised if not improving in the next couple of days. Return to this/nearest emergency department for any change worsening symptoms or any concerns prior. Prescriptions: No Action (DME) Blood Glucose Test Strip See Rx Instructions .Route Qty: 100 3RF Rx Instructions: As directed (DME) lancets Misc See Rx Instructions .Route Qty: 100 3RF Rx Instructions: As directed cholecalciferol (vitamin D3) 25 mcg (1,000 unit) capsule 25 mcg PO DAILY (DME) blood-glucose meter Kit See Rx Instructions .Route Qty: 1 0RF Rx Instructions: As directed escitalopram oxalate [Lexapro] 10 mg tablet 10 mg PO DAILY Qty: 90 3RF lisinopril-hydrochlorothiazide 20-12.5 mg tablet 2 tab PO DAILY Qty: 180 3RF rosuvastatin 10 mg tablet 10 mg PO DAILY Qty: 90 3RF Mounjaro 15 mg/0.5 mL pen injector 15 mg SUBCUT QWEEK Qty: 2 12RF Referrals: Rigo Franks ARNP [Primary Care Provider, Medical] Stand Alone Forms: Patient Portal/API
[2025-07-23 21:16] LABS: Influenza A - CEPHEID Flu A NEGATIVE (NEGATIVE); Influenza B - CEPHEID Flu B NEGATIVE (NEGATIVE)
[2025-07-23 21:30] LABS: COVID-19 CEPHEID 4-PLEX PCR Negative (Negative)
[2025-07-23] MEDS: LOPERAMIDE 2 MG CAPSULE PO (21:39)
[2025-07-23] MEDS: ONDANSETRON 4 MG ODT PREPACK 1 BOTTLE MISC (21:40)
[2025-07-23 21:44] VITALS: BP 132/89; PULSE 80; RESP 16; O2SAT 97
== END 2025-07-23 21:44 | disposition home or self-care (01) ==
PROVIDERS: Emergency Provider Emergency Medicine; PCP Registered Nurse Diabetes Educator
DX: T28.0XXA Burn of mouth and pharynx, initial encounter (principal); R19.7 Diarrhea, unspecified; R11.0 Nausea; X10.1XXA Contact with hot food, initial encounter
CPT/HCPCS: 87637; 99283; J7030

== ENCOUNTER → 2025-07-27 16:29 | Outpatient (CLI) | payer OTHER, SELFPAY ==
[2023-04-12 01:33] VITALS: BMI 46.6
--- NOTE | 2025-07-27 16:31 | DI.RAD.S_ITS ---
PROCEDURE: XR KNEE RT 3V INDICATIONS: eval for OA TECHNIQUE: 3 views of the knee were acquired. COMPARISON: None. FINDINGS: Bones: There are no osseous abnormalities. Joints: Mild patellofemoral and tibial femoral degeneration noted. No effusions. Soft tissues: Normal IMPRESSION: Mild degeneration Dictated by: Zana Lan M.D. on 07/28/2025 at 13:03 Approved by: Zana Lan M.D. on 07/28/2025 at 13:03
== END ==
PROVIDERS: PCP Registered Nurse Diabetes Educator; Referring Provider Chiropractor; Visit Provider Chiropractor
DX: S83.91XA Sprain of unspecified site of right knee, initial encounter (principal); M17.11 Unilateral primary osteoarthritis, right knee; M25.561 Pain in right knee
CPT/HCPCS: 73562